=== PATIENT | female | born 1995 | race Caucasian/White ===

== ENCOUNTER 2017-07-27 18:57 | Emergency (ER) | payer SELFPAY ==
[~2017-07-27] VITALS: Ht 170.2 cm; Wt 108.6 kg
[~2017-07-27 18:57] MED LIST: ADDERALL20 MG PO; ALBUTEROL SUL0.083 % IN; AMOXICILLIN500 MG PO; CIPROFLOXACN500 MG PO; NAPROSYN500 MG PO; PENICILLN VK500 MG PO; PRISTIQ50 MG PO
[2017-07-27 19:49] LABS: HEMOGLOBIN 13.3 g/dl (12.0-16.0); IMMATURE GRANULOCYTES 0.3 % (0.0-1.0); MEAN CELL VOLUME 85.9 fL CALC (80.0-100.0); MEAN CORPUSCULAR HGB 29.3 pG CALC (26.0-32.0); MEAN CORPUSCULAR HGB CONC 34.1 g/L CALC (32.0-36.0); NEUT# 6.12 thou/uL (2.00-7.15); RED BLOOD COUNT 4.54 mill/uL (4.20-5.60); RED CELL DISTRI WIDTH 12.4 % (11.5-15.5)
[2017-07-27 19:56] LABS: URINE BILIRUBIN - DIPSTICK NEGATIVE (NEGATIVE); URINE BLOOD DIPSTICK TRACE-INTACT (NEGATIVE); URINE COLOR YELLOW; URINE GLUCOSE - DIPSTICK NEGATIVE (NEGATIVE); URINE KETONE NEGATIVE (NEGATIVE); URINE NITRITE - DIPSTICK NEGATIVE (Negative); URINE PH 5.5 (4.5-8.0); URINE PROTEIN - DIPSTICK NEGATIVE (NEG-TRACE); URINE UROBILINOGEN - DIPSTICK 0.2 E.U./dL (0.2)
[2017-07-27 19:57] LABS: URINE CLARITY CLOUDY; URINE LEUK ESTERASE LARGE (NEGATIVE)
[2017-07-27 20:05] LABS: URINE BACTERIA FEW hpf; URINE SQUAMOUS EPITHELIAL CELL MANY EPI/hpf (0-FEW); URINE WBC TNTC WBC/hpf (0-5)
[2017-07-27 20:15] LABS: ALBUMIN 3.9 g/dL (3.2-5.0); ALKALINE PHOSPHATASE 52 u/l (38-126); AMYLASE 80 u/l (30-110); ANION GAP 15 (6-22 (CALC)); BILIRUBIN, TOTAL 0.4 mg/dL (0.0-1.4); BUN 8 mg/dL (7-17); BUN/CREATININE RATIO 14 (12-20 (CALC)); CARBON DIOXIDE 24 mmol/l (22-30); CHLORIDE 107 mmol/l (95-108); CREATININE 0.6 mg/dL (0.5-1.0); GFR > 60 ML/MIN (>=60 (CALC)); GFR FOR AFR.AMER. > 60 ML/MIN (>=60 (CALC)); GLUCOSE 91 mg/dL (65-105); LIPASE 134 u/l (23-300); POTASSIUM 4.1 mmol/l (3.5-5.1); SGOT/AST 18 u/l (14-36); SGPT/ALT 24 u/l (9-52); SODIUM 142 mmol/l (137-146); TOTAL PROTEIN 7.1 g/dL (6.3-8.2)
[2017-07-27] MEDS ORDERED: CIPROFLOXACN500 MG PO (21:51)
[2017-07-27] MEDS ORDERED: PRILOSEC20 MG PO (21:51)
[2017-07-27 22:14] VITALS: BP 114/71
== END 2017-07-27 22:15 | disposition home or self-care (01) | DRG 690 ==
LOC: ED 18:57
PROVIDERS: Emergency Medicine
DX: N39.0 Urinary tract infection, site not specified (principal); R50.9 Fever, unspecified; R10.11 Right upper quadrant pain; R10.12 Left upper quadrant pain; R11.2 Nausea with vomiting, unspecified; R19.7 Diarrhea, unspecified; N83.202 Unspecified ovarian cyst, left side

== ENCOUNTER 2017-09-25 09:26 | Emergency (ER) | payer SELFPAY ==
[~2017-09-25] VITALS: Ht 170.2 cm; Wt 100.0 kg
[~2017-09-25 09:26] MED LIST changes: +PRILOSEC20 MG PO
[2017-09-25 11:21] LABS: URINE BILIRUBIN - DIPSTICK NEGATIVE (NEGATIVE); URINE BLOOD DIPSTICK LARGE (NEGATIVE); URINE COLOR YELLOW; URINE GLUCOSE - DIPSTICK NEGATIVE (NEGATIVE); URINE KETONE NEGATIVE (NEGATIVE); URINE NITRITE - DIPSTICK NEGATIVE (Negative); URINE PH 7.5 (4.5-8.0); URINE PROTEIN - DIPSTICK NEGATIVE (NEG-TRACE); URINE UROBILINOGEN - DIPSTICK 0.2 E.U./dL (0.2)
[2017-09-25 11:23] LABS: HEMATOCRIT 40.5 % (37.0-47.0); HEMOGLOBIN 13.7 g/dl (12.0-16.0); IMMATURE GRANULOCYTES 0.2 % (0.0-1.0); MEAN CORPUSCULAR HGB 29.1 pG CALC (26.0-32.0); MEAN CORPUSCULAR HGB CONC 33.8 g/L CALC (32.0-36.0); NEUT# 5.62 thou/uL (2.00-7.15); RED BLOOD COUNT 4.71 mill/uL (4.20-5.60); RED CELL DISTRI WIDTH 12.5 % (11.5-15.5)
[2017-09-25 11:26] LABS: URINE CLARITY CLOUDY; URINE LEUK ESTERASE SMALL (NEGATIVE)
[2017-09-25 11:28] LABS: URINE RBC TNTC RBC/hpf (0-5); URINE SQUAMOUS EPITHELIAL CELL FEW EPI/hpf (0-FEW)
[2017-09-25 11:41] LABS: ALBUMIN 3.6 g/dL (3.2-5.0); ALKALINE PHOSPHATASE 56 u/l (38-126); ANION GAP 12 (6-22 (CALC)); BILIRUBIN, TOTAL 0.4 mg/dL (0.0-1.4); BUN 9 mg/dL (7-17); BUN/CREATININE RATIO 14 (12-20 (CALC)); CARBON DIOXIDE 29 mmol/l (22-30); CHLORIDE 104 mmol/l (95-108); CREATININE 0.6 mg/dL (0.5-1.0); GFR > 60 ML/MIN (>=60 (CALC)); GFR FOR AFR.AMER. > 60 ML/MIN (>=60 (CALC)); GLUCOSE 102 mg/dL (65-105); POTASSIUM 4.3 mmol/l (3.5-5.1); SGOT/AST 19 u/l (14-36); SGPT/ALT 25 u/l (9-52); SODIUM 140 mmol/l (137-146); TOTAL PROTEIN 6.9 g/dL (6.3-8.2)
[2017-09-25] MEDS ORDERED: ZOFRAN ODT4 MG PO (12:13)
[2017-09-25 12:35] VITALS: BP 115/57
== END 2017-09-25 12:39 | disposition home or self-care (01) | DRG 392 ==
LOC: ED 09:26
PROVIDERS: Emergency Medicine
DX: K52.9 Noninfective gastroenteritis and colitis, unspecified (principal); F17.200 Nicotine dependence, unspecified, uncomplicated; F32.9 Major depressive disorder, single episode, unspecified; J45.909 Unspecified asthma, uncomplicated; F90.9 Attention-deficit hyperactivity disorder, unspecified type; F41.9 Anxiety disorder, unspecified

== ENCOUNTER 2017-10-19 07:51 | Emergency (ER) | payer SELFPAY ==
[~2017-10-19] VITALS: Ht 170.2 cm; Wt 109.0 kg
[2017-10-19 07:51] VITALS: BP 129/73
[~2017-10-19 07:51] MED LIST changes: +ZOFRAN ODT4 MG PO
[2017-10-19 09:09] LABS: INFLUENZA A POSITIVE (NONE DETECT); INFLUENZA B NONE DETECTED (NONE DETECT)
[2017-10-19] MEDS ORDERED: ROBITUSSIN AC10 ML PO (09:11)
[2017-10-19] MEDS ORDERED: TAM75CAP PO (09:11)
== END 2017-10-19 09:25 | disposition home or self-care (01) | DRG 153 ==
LOC: ED 07:51
PROVIDERS: Emergency Medicine
DX: J11.1 Influenza due to unidentified influenza virus with other respiratory manifestations (principal); F17.210 Nicotine dependence, cigarettes, uncomplicated; R05 Cough; M79.1 Myalgia; R11.10 Vomiting, unspecified

== ENCOUNTER 2017-12-07 12:12 | Emergency (ER) | payer SELFPAY ==
[~2017-12-07] VITALS: Ht 170.2 cm; Wt 105.0 kg
[~2017-12-07 12:12] MED LIST changes: +ROBITUSSIN AC10 ML PO; +TAM75CAP PO
[2017-12-07 12:47] LABS: INFLUENZA A NONE DETECTED (NONE DETECT); INFLUENZA B POSITIVE (NONE DETECT)
[2017-12-07 13:16] LABS: URINE BLOOD DIPSTICK NEGATIVE (NEGATIVE); URINE COLOR YELLOW; URINE GLUCOSE - DIPSTICK 100 mg/dL (NEGATIVE); URINE KETONE TRACE mg/dL (NEGATIVE); URINE LEUK ESTERASE NEGATIVE (Negative); URINE NITRITE - DIPSTICK NEGATIVE (Negative); URINE PH 5.5 (4.5-8.0); URINE PROTEIN - DIPSTICK 100 mg/dL (NEG-TRACE); URINE SPECIFIC GRAVITY >=1.030; URINE UROBILINOGEN - DIPSTICK 0.2 E.U./dL (0.2)
[2017-12-07 13:18] LABS: URINE BILIRUBIN - DIPSTICK NEGATIVE (NEGATIVE); URINE CLARITY CLEAR
[2017-12-07 13:19] LABS: COCAINE NEGATIVE (NEGATIVE); URINE RBC 0-2 RBC/hpf (0-5); URINE SQUAMOUS EPITHELIAL CELL MODERATE EPI/hpf (0-FEW); URINE WBC 0-2 WBC/hpf (0-5)
[2017-12-07 13:20] LABS: BARBITURATES NEGATIVE (NEGATIVE); METHADONE NEGATIVE (NEGATIVE); OXCYCODONE NEGATIVE (NEGATIVE); TETRAHYDROCANNABIONOL POSITIVE (NEGATIVE); TRICYLIC ANTIDEPRESSANTS NEGATIVE (NEGATIVE)
[2017-12-07] MEDS ORDERED: TAM75CAP PO (13:42)
[2017-12-07 13:45] VITALS: BP 128/74
[2017-12-07] MEDS ORDERED: PROVENTIL HFA IN (13:47)
[2017-12-07] MEDS ORDERED: ZITHROMAX250 MG PO (13:47)
== END 2017-12-07 13:45 | disposition home or self-care (01) | DRG 153 ==
LOC: ED 12:12
PROVIDERS: Emergency Medicine
DX: J11.1 Influenza due to unidentified influenza virus with other respiratory manifestations (principal); J45.909 Unspecified asthma, uncomplicated

== ENCOUNTER 2018-03-25 14:53 | Emergency (ER) | payer SELFPAY ==
[~2018-03-25] VITALS: Ht 170.2 cm; Wt 109.0 kg
[~2018-03-25 14:53] MED LIST changes: +PROVENTIL HFA IN; +ZITHROMAX250 MG PO
[2018-03-25 15:46] LABS: HEMATOCRIT 39.8 % (37.0-47.0); HEMOGLOBIN 13.4 g/dl (12.0-16.0); IMMATURE GRANULOCYTES 0.3 % (0.0-1.0); MEAN CORPUSCULAR HGB 28.6 pG CALC (26.0-32.0); MEAN CORPUSCULAR HGB CONC 33.7 g/L CALC (32.0-36.0); NEUT# 3.24 thou/uL (2.00-7.15); RED BLOOD COUNT 4.68 mill/uL (4.20-5.60); RED CELL DISTRI WIDTH 12.7 % (11.5-15.5)
[2018-03-25 15:53] LABS: ANION GAP 19 (6-22 (CALC)); BUN 7 mg/dL (7-17); BUN/CREATININE RATIO 11 (12-20 (CALC)); CARBON DIOXIDE 23 mmol/l (22-30); CHLORIDE 106 mmol/l (95-108); CREATININE 0.6 mg/dL (0.5-1.0); GFR > 60 ML/MIN (>=60 (CALC)); GFR FOR AFR.AMER. > 60 ML/MIN (>=60 (CALC)); POTASSIUM 4.3 mmol/l (3.5-5.1); SODIUM 144 mmol/l (137-146)
[2018-03-25] MEDS ORDERED: RANITIDINE150 M1 PO (16:40)
[2018-03-25 16:52] VITALS: BP 102/55
== END 2018-03-25 16:58 | disposition home or self-care (01) | DRG 313 ==
LOC: ED 14:53
PROVIDERS: Family Medicine
DX: R07.9 Chest pain, unspecified (principal); J45.909 Unspecified asthma, uncomplicated

== ENCOUNTER 2019-08-08 19:41 | Emergency (ER) | payer SELFPAY ==
[~2019-08-08] VITALS: Ht 170.2 cm; Wt 104.5 kg
[~2019-08-08 19:41] MED LIST changes: +RANITIDINE150 M1 PO
[2019-08-08] MEDS ORDERED: ZOFRAN4 M1 PO (21:43)
[2019-08-08 22:00] VITALS: BP 142/83
== END 2019-08-08 22:00 | disposition home or self-care (01) | DRG 203 ==
LOC: ED 19:41
DX: J45.909 Unspecified asthma, uncomplicated (principal); F17.210 Nicotine dependence, cigarettes, uncomplicated

== ENCOUNTER 2022-07-13 12:21 | Emergency (ER) | payer SELFPAY ==
[~2022-07-13] VITALS: Ht 170.2 cm; Wt 68.0 kg
[~2022-07-13 12:21] MED LIST changes: +ZOFRAN4 M1 PO
[2022-07-13 13:43] VITALS: BP 112/46
[2022-07-13 13:45] VITALS: BP 99/63
[2022-07-13 14:00] VITALS: BP 120/53
[2022-07-13 14:53] LABS: HEMATOCRIT 37.9 % (37.0-47.0); HEMOGLOBIN 12.3 g/dl (12.0-16.0); MEAN CELL VOLUME 88.8 fL CALC (80.0-100.0); MEAN CORPUSCULAR HGB 28.8 pG CALC (26.0-32.0); MEAN CORPUSCULAR HGB CONC 32.5 g/dL CAL (32.0-36.0); NEUT# 5.27 thou/uL (2.00-7.15); RED BLOOD COUNT 4.27 mill/uL (4.20-5.60); RED CELL DISTRI WIDTH 13.5 % (11.5-15.5)
[2022-07-13 15:02] LABS: ALKALINE PHOSPHATASE 55 u/l (38-126); ANION GAP 14 (6-22 (CALC)); BILIRUBIN, TOTAL 0.3 mg/dL (0.0-1.4); BUN 11 mg/dL (7-17); BUN/CREATININE RATIO 20 (12-20 (CALC)); CARBON DIOXIDE 24 mmol/l (22-30); CHLORIDE 104 mmol/l (95-108); CREATININE 0.6 mg/dL (0.5-1.0); GFR FOR AFR.AMER. > 60 ML/MIN (>=60 (CALC)); GFR OTHER RACES > 60 ML/MIN (>=60 (CALC)); POTASSIUM 4.3 mmol/l (3.5-5.1); SODIUM 138 mmol/l (137-146); TOTAL PROTEIN 7.4 g/dL (6.3-8.2)
[2022-07-13 15:03] LABS: SGOT/AST 20 u/l (14-36)
[2022-07-13] MEDS ORDERED: BACTRIM DS1 TAB PO (15:51)
[2022-07-13] MEDS ORDERED: KEFLEX500 MG PO (15:51)
[2022-07-13 15:58] VITALS: BP 120/53
[2022-07-13] MEDS ORDERED: ULTRAM50 M1 PO (23:28)
== END 2022-07-13 16:04 | disposition home or self-care (01) | DRG 603 ==
LOC: ED 12:21
PROVIDERS: Emergency Medicine
DX: L03.116 Cellulitis of left lower limb (principal); J45.909 Unspecified asthma, uncomplicated; F17.200 Nicotine dependence, unspecified, uncomplicated

== ENCOUNTER 2023-03-12 15:38 | Emergency (ER) | payer SELFPAY ==
[~2023-03-12] VITALS: Ht 170.2 cm; Wt 89.8 kg
[~2023-03-12 15:38] MED LIST changes: +BACTRIM DS1 TAB PO; +KEFLEX500 MG PO; +ULTRAM50 M1 PO
[2023-03-12] MEDS ORDERED: BACTRIM DS1 TAB PO (16:47)
[2023-03-12 16:51] VITALS: BP 128/79
== END 2023-03-12 17:06 | disposition home or self-care (01) | DRG 603 ==
LOC: ED 15:38
PROC: 0H9EXZZ Drainage of Left Lower Arm Skin, External Approach (ICD-10-PCS; principal; 2023-03-12)
DX: L02.414 Cutaneous abscess of left upper limb (principal); J45.909 Unspecified asthma, uncomplicated; F17.200 Nicotine dependence, unspecified, uncomplicated

== ENCOUNTER 2023-03-14 14:19 | Emergency (ER) | payer SELFPAY ==
[~2023-03-14] VITALS: Ht 170.2 cm; Wt 100.0 kg
[2023-03-14 14:38] VITALS: BP 127/88
[2023-03-14 14:45] VITALS: BP 127/91
[2023-03-14 15:06] VITALS: BP 127/91
== END 2023-03-14 15:09 | disposition home or self-care (01) | DRG 951 ==
LOC: ED 14:19
DX: Z48.01 Encounter for change or removal of surgical wound dressing (principal)

== ENCOUNTER 2023-03-16 13:56 | Emergency (ER) | payer SELFPAY ==
[~2023-03-16] VITALS: Ht 170.2 cm; Wt 86.0 kg
[2023-03-16 14:11] VITALS: BP 116/80
[2023-03-16 15:06] VITALS: BP 116/80
== END 2023-03-16 15:16 | disposition home or self-care (01) | DRG 951 ==
LOC: ED 13:56
DX: Z48.01 Encounter for change or removal of surgical wound dressing (principal); F17.200 Nicotine dependence, unspecified, uncomplicated

== ENCOUNTER 2023-03-20 14:29 | Emergency (ER) | payer SELFPAY ==
[~2023-03-20] VITALS: Ht 170.2 cm; Wt 65.7 kg
[2023-03-20 14:36] VITALS: BP 116/61
[2023-03-20 14:45] VITALS: BP 118/78
[2023-03-20 15:07] VITALS: BP 118/78
== END 2023-03-20 15:13 | disposition home or self-care (01) | DRG 951 ==
LOC: ED 14:29
DX: Z48.01 Encounter for change or removal of surgical wound dressing (principal); J45.909 Unspecified asthma, uncomplicated; F17.200 Nicotine dependence, unspecified, uncomplicated

== ENCOUNTER 2023-11-11 17:19 | Emergency (ER) | payer SELFPAY ==
[~2023-11-11] VITALS: Ht 170.2 cm; Wt 99.0 kg
[2023-11-11 18:22] LABS: BASO% 0.2 % (0-3); EOS% 2.6 % (0-8); IMMATURE GRANULOCYTES 0.2 % (0.0-5.0); LYMPH% 10.9 % (15-41); MEAN CORPUSCULAR HGB 28.1 pG CALC (26.0-32.0); MEAN CORPUSCULAR HGB CONC 33.5 g/dL CAL (32.0-36.0); NEUT# 13.54 thou/uL (2.00-7.15); NEUT% 77.1 % (42-76); RED BLOOD COUNT 5.3 mill/uL (4.20-5.60)
[2023-11-11 18:23] LABS: HEMATOCRIT 44.5 % (37.0-47.0); HEMOGLOBIN 14.9 g/dl (12.0-16.0)
[2023-11-11 18:26] LABS: URINE BLOOD DIPSTICK Negative (NEGATIVE); URINE GLUCOSE - DIPSTICK Negative (NEGATIVE); URINE KETONE 15 mg/dL (NEGATIVE); URINE LEUK ESTERASE Negative (NEGATIVE); URINE NITRITE - DIPSTICK Negative (Negative); URINE PROTEIN - DIPSTICK Trace mg/dL (NEG-TRACE); URINE SPECIFIC GRAVITY 1.025; URINE UROBILINOGEN - DIPSTICK 0.2 E.U./dL (0.2)
[2023-11-11 18:27] LABS: URINE COLOR Yellow
[2023-11-11 18:37] LABS: ALBUMIN 3.9 g/dL (3.2-5.0); ALKALINE PHOSPHATASE 66 u/l (38-126); ANION GAP 15 (6-22 (CALC)); BUN 19 mg/dL (7-17); BUN/CREATININE RATIO 30 (12-20 (CALC)); CARBON DIOXIDE 20 mmol/l (22-30); CHLORIDE 105 mmol/l (95-108); CREATININE 0.6 mg/dL (0.5-1.0); GFR FOR AFR.AMER. > 60 ML/MIN (>=60 (CALC)); GFR OTHER RACES > 60 ML/MIN (>=60 (CALC)); LIPASE 61 u/l (23-300); POTASSIUM 4.8 mmol/l (3.5-5.1); SGOT/AST 22 u/l (14-36); SODIUM 135 mmol/l (137-146); TOTAL PROTEIN 7.1 g/dL (6.3-8.2)
[2023-11-11 18:38] LABS: BILIRUBIN, TOTAL 0.5 mg/dL (0.02-1.3)
[2023-11-11 18:45] VITALS: BP 115/79
[2023-11-11 19:01] VITALS: BP 98/63
[2023-11-11 19:15] VITALS: BP 105/50
[2023-11-11 21:02] VITALS: BP 105/50
== END 2023-11-11 21:08 | disposition left against medical advice (07) | DRG 603 ==
LOC: ED 17:19
PROVIDERS: Family Medicine
DX: L03.311 Cellulitis of abdominal wall (principal); F15.10 Other stimulant abuse, uncomplicated; J45.909 Unspecified asthma, uncomplicated; Z53.29 Procedure and treatment not carried out because of patient's decision for other reasons

== ENCOUNTER 2023-11-14 22:16 | Emergency (ER) | payer SELFPAY ==
[~2023-11-14] VITALS: Ht 170.2 cm; Wt 90.0 kg
[2023-11-14 22:27] VITALS: BP 132/69
[2023-11-14 23:00] VITALS: BP 98/39
[2023-11-15] VITALS (56 sets, daily range): BP systolic 80–166; BP diastolic 52–116
[2023-11-15 01:34] LABS: IMMATURE GRANULOCYTES 0.8 % (0.0-5.0); MEAN CELL VOLUME 80.7 fL CALC (80.0-100.0); MEAN CORPUSCULAR HGB 27.8 pG CALC (26.0-32.0); MEAN CORPUSCULAR HGB CONC 34.5 g/dL CAL (32.0-36.0); RED BLOOD COUNT 6.54 mill/uL (4.20-5.60)
[2023-11-15 01:39] LABS: ALBUMIN 3.2 g/dL (3.2-5.0); TOTAL PROTEIN 6.8 g/dL (6.3-8.2)
[2023-11-15 01:46] LABS: BILIRUBIN, TOTAL 0.8 mg/dL (0.02-1.3); CREATININE 3.2 mg/dL (0.5-1.0)
[2023-11-15 01:58] LABS: HEMATOCRIT 52.8 % (37.0-47.0); HEMOGLOBIN 18.2 g/dl (12.0-16.0); PLATELET COUNT 601 thou/uL (130-400)
[2023-11-15 01:59] LABS: MANUAL DIFFERENTIAL YES
[2023-11-15 02:05] LABS: BAND 1 % (0-8)
--- NOTE | 2023-11-16 15:28 | NUR ---
PRELIMINARY RESULTS OF BLOOD CULTURE SHOWING GRAM POSITIVE COCCI IN 2/4 BOTTLES FROM SAME SET FAXED TO KATHERINE NASREEN @ [phone]. WILL COMMUNICATE FINAL RESULTS ONCE AVAILABLE.
== END 2023-11-15 06:10 | DRG 872 ==
LOC: ED 22:16
PROVIDERS: Family Medicine
PROC: 02HV33Z Insertion of Infusion Device into Superior Vena Cava, Percutaneous Approach (ICD-10-PCS; principal; 2023-11-14)
DX: A41.9 Sepsis, unspecified organism (principal); L03.311 Cellulitis of abdominal wall; N17.9 Acute kidney failure, unspecified; E87.1 Hypo-osmolality and hyponatremia; R65.20 Severe sepsis without septic shock; E87.5 Hyperkalemia; F19.10 Other psychoactive substance abuse, uncomplicated; J45.909 Unspecified asthma, uncomplicated; F17.200 Nicotine dependence, unspecified, uncomplicated

== ENCOUNTER 2023-12-04 12:06 | Inpatient (IN) | payer OTHER ==
[~2023-12-04] VITALS: Ht 170.2 cm; Wt 94.4 kg
[2023-12-04] VITALS (23 sets, daily range): BP systolic 85–125; BP diastolic 36–77
--- NOTE | 2023-12-04 12:06 | NUR ---
PT TO ROOM 8 VIA EMS STRETCHER, PT CRYING WITH ABD PAIN 10/10, PT HAS WOUND UPPER (R) ABD, PICTURES TAKEN OF WOUND, VSS, CHANGED TO GOWN, CALL LIGHT IN REACH, PROVIDER NOTIFIED. PER PT SHE WAS D/C FROM [facility] AFTER 7-10 DAY STAY FOR WOUND & SEPSIS.
--- NOTE | 2023-12-04 12:07 | NUR ---
PT TO ROOM 8 VIA EMS, REPORT RECEIVED, NAD NOTED, PT C/O PAIN 05/29 ABD, CHANGED TO GOWN, CALL LIGHT IN REACH, PROVIDER NOTIFIED.
--- NOTE | 2023-12-04 12:20 | NUR ---
PROVIDER AT BEDSIDE FOR EXAM, RECTAL TEMP 101.8.
[2023-12-04] MEDS ORDERED: PIPERACILLIN Sodium-Tazobactam 3.375 GM in SODIUM CHLORIDE 0.9% 100 ML IV ONE (12:30)
[2023-12-04] MEDS ORDERED: SODIUM CHLORIDE 0.9% 1,000 ML IV ONE ×2 (12:30→17:35)
[2023-12-04] MEDS ORDERED: VANCOMYCIN HCL 1 GM in SODIUM CHLORIDE 0.9% 250 ML IV ONE (12:30)
[2023-12-04] MEDS ORDERED: MORPHINE SULFATE 4 MG/ML VIAL IV ONE ×2 (12:30→13:35)
[2023-12-04] MEDS ORDERED: ONDANSETRON HCl 4 MG/2 ML SDV IV ONE ×2 (12:30→16:15)
--- NOTE | 2023-12-04 12:41 | NUR ---
PROVIDER IN ROOM FOR CENTAL LINE PLACEMENT, YOEL OBTAINED [phone], PT VSS.
--- NOTE | 2023-12-04 13:04 | NUR ---
PROVIDER JUST FINISHED CENTRAL LINE PLACEMENT, X-RAY IN ROOM FOR CXR, PT STABLE, VSS, CALL LIGHT IN REACH.
--- NOTE | 2023-12-04 13:07 | NUR ---
PT STANDING UP AT DOOR, ALERT, NAD NOTED, SITTER AT DOOR.
--- NOTE | 2023-12-04 13:18 | NUR ---
CXR COMPLETED FOR PLACEMENT OF CENTRAL LINE (L) IJ, PLACEMENT NOT CORRECT, PROVIDER IN ROOM FOR PLACEMENT CENTRAL LINE (R) NECK.
--- NOTE | 2023-12-04 13:29 | NUR ---
PROVIDER FINISHED WITH PLACEMENT CENTRAL LINE IN (R) IJ, PORTABLE CXR ORDERED FOR PLACEMENT.
[2023-12-04 13:39] LABS: BASO% 0.7 % (0-3); EOS% 0.7 % (0-8); LYMPH% 15.7 % (15-41); MEAN CORPUSCULAR HGB 27.8 pG CALC (26.0-32.0); MEAN CORPUSCULAR HGB CONC 31.5 g/dL CAL (32.0-36.0); MONO% 9.2 % (2-13); NEUT# 9.57 thou/uL (2.00-7.15); NEUT% 72.7 % (42-76); RED BLOOD COUNT 3.02 mill/uL (4.20-5.60); RED CELL DISTRI WIDTH 13.2 % (11.5-15.5)
[2023-12-04 13:46] LABS: HEMATOCRIT 26.7 % (37.0-47.0); HEMOGLOBIN 8.4 g/dl (12.0-16.0); MEAN CELL VOLUME 88.4 fL CALC (80.0-100.0)
--- NOTE | 2023-12-04 13:49 | NUR ---
IN ROOM TO MEDICATE PT PER EMAR FOR PAIN 07/29, VSS, NAD NOTED, CALL LIGHT IN REACH.
[2023-12-04 14:09] LABS: ALKALINE PHOSPHATASE 63 u/l (38-126); SGOT/AST 40 u/l (14-36)
[2023-12-04 14:10] LABS: ALBUMIN 2.1 g/dL (3.2-5.0); ANION GAP 4 (6-22 (CALC)); BILIRUBIN, TOTAL 0.3 mg/dL (0.02-1.3); BUN 3 mg/dL (7-17); BUN/CREATININE RATIO 10 (12-20 (CALC)); CARBON DIOXIDE 30 mmol/l (22-30); CHLORIDE 104 mmol/l (95-108); CREATININE 0.3 mg/dL (0.5-1.0); GFR FOR AFR.AMER. > 60 ML/MIN (>=60 (CALC)); GFR OTHER RACES > 60 ML/MIN (>=60 (CALC)); POTASSIUM 3.5 mmol/l (3.5-5.1); SODIUM 134 mmol/l (137-146); TOTAL PROTEIN 4.9 g/dL (6.3-8.2)
[2023-12-04 14:17] LABS: LIPASE 129 u/l (23-300)
--- NOTE | 2023-12-04 14:24 | NUR ---
2ND BC DRAWN, I/V ANTIBIOTICS STARTED PER EMAR, NAD NOTED, VSS, CALL LIGHT IN REACH.
[2023-12-04] MEDS ORDERED: NEOMYCIN-BACITRACIN-POLYMYXIN 0.5 GM/PAK PAK TOP ONE (15:10)
--- NOTE | 2023-12-04 15:30 | NUR ---
IN ROOM TO REMOVE CENTRAL LINE FROM [facility], PT TOLERATED WELL.
[2023-12-04] MEDS ORDERED: HYDROmorphone HCL 2 MG/AMP IV ONE (15:50)
--- NOTE | 2023-12-04 16:08 | NUR ---
CALLED TO ROOM, PT C/O BEING NAUSEA, WILL ADVISE PROVIDER FOR TX ORDERS.
--- NOTE | 2023-12-04 16:29 | NUR ---
IN ROOM TO MEDICATE PT FOR C/O PAIN 05/29 WITH NAUSEA, NAD NOTED, VSS, CALL LIGHT IN REACH.
--- NOTE | 2023-12-04 17:37 | NUR ---
IN ROOM TO DO EKG, PT GIVEN ICE CHIPS, NAD NOTED, VSS, CALL LIGHT IN REACH.
--- NOTE | 2023-12-04 17:59 | NUR ---
IN ROOM TO START I/V FLUIDS PER EMAR, PT VSS, NAD NOTED, CALL LIGHT IN REACH.
[2023-12-04] MEDS ORDERED: HYDROmorphone HCL 2 MG/AMP IV PRN (18:30)
[2023-12-04] MEDS ORDERED: ONDANSETRON HCl 4 MG/2 ML SDV IV PRN (18:30)
[2023-12-04] MEDS ORDERED: SODIUM CHLORIDE 0.9% 1,000 ML IV PRN (18:35)
[2023-12-04] MEDS ORDERED: ACETAMINOPHEN 325 MG/TAB PO PRN (18:35)
[2023-12-04] MEDS ORDERED: MAGNESIUM HYDROXIDE 30 ML UDC PO PRN (18:35)
--- NOTE | 2023-12-04 19:00 | NUR ---
REPORT RECEIVED FROM RONALD SANTACRUZ AND CARE RESUMED BY THIS NURSE AT THIS TIME. PT AWAITING ADMISSION TO MED SURG. CALL LIGHT WITHIN REACH.
--- NOTE | 2023-12-04 19:11 | NUR ---
REPORT GIVEN TO SPRINKLER HELPER, PT SITTING UP IN BED, NAD NOTED, VSS.
[2023-12-04] MEDS ORDERED: HYDROcodone 5 MG/Acetaminophen 325 MG/COMBO PO ONE (19:20)
--- NOTE | 2023-12-04 20:28 | NUR ---
REPORT GIVEN TO DEDRA ROLLINS AT THIS TIME. PT AWAITING TRANSPORT TO MED SURG RM [phone]. CALL LIGHT WITHIN REACH.
[2023-12-04] MEDS ORDERED: ENOXAPARIN SODIUM 40 MG/0.4 ML SYR SC SCH (21:00)
[2023-12-04] MEDS ORDERED: NEOMYCIN-BACITRACIN-POLYMYXIN 0.5 GM/PAK PAK TOP SCH (21:00)
--- NOTE | 2023-12-04 21:00 | NUR ---
RECEIVED REPORT FROM ED NURSE. PT WAS BROUGHT UP VIA WHEELCHAIR. PT WAS ORIENTATED TO ROOM AND TO CALL LIGHT SYSTEM. PT COMPLAINS OF PAIN AT THIS TIME. PT MADE AWARE OF PLAN OF CARE. SAFETY PRECAUTIONS IN PLACE AND CALL LIGHT WITHIN REACH.
--- NOTE | 2023-12-04 21:12 | NUR ---
Admission Note Report Given to: DEDRA ROLLINS Transported by: X Wheelchair Stretcher Transported with: X Nurse Transporter X Patent IV O2 X Tobacco Conditioner Location: ICU X MS2
[2023-12-04 21:48] LABS: URINE BILIRUBIN - DIPSTICK Negative (NEGATIVE); URINE BLOOD DIPSTICK Negative (NEGATIVE); URINE GLUCOSE - DIPSTICK Negative (NEGATIVE); URINE KETONE Negative (NEGATIVE); URINE NITRITE - DIPSTICK Negative (Negative); URINE PH 6.5 (4.5-8.0); URINE PROTEIN - DIPSTICK Trace mg/dL (NEG-TRACE); URINE UROBILINOGEN - DIPSTICK 0.2 E.U./dL (0.2)
[2023-12-04 21:49] LABS: URINE COLOR Yellow; URINE LEUK ESTERASE Small (NEGATIVE)
[2023-12-04 21:55] LABS: URINE BACTERIA FEW hpf; URINE SQUAMOUS EPITHELIAL CELL FEW EPI/hpf (0-FEW)
[2023-12-05] VITALS (16 sets, daily range): BP systolic 93–151; BP diastolic 26–83
--- NOTE | 2023-12-05 | NUR ---
PT IS IN BED SLEEPING COMFORTABLY AT THIS TIME. PT SHOWS NO SIGNS OF PAIN OR DISCOMFORT AT THIS TIME. SAFETY PRECAUTIONS IN PLACE AND CALL LIGHT WITHIN REACH.
--- NOTE | 2023-12-05 04:10 | NUR ---
PT IS IN BED SLEEPING COMFORTABLY AT THIS TIME., PT DENIES OF PAIN AT THE CURRENT MOMENT. SAFETY PRECAUTIONS IN PLACE AND CALL LIGHT WITHIN REACH.
[2023-12-05 04:58] LABS: BASO% 0.6 % (0-3); EOS% 1.3 % (0-8); HEMATOCRIT 26.2 % (37.0-47.0); IMMATURE GRANULOCYTES 0.7 % (0.0-5.0); LYMPH% 16.2 % (15-41); MEAN CELL VOLUME 90.3 fL CALC (80.0-100.0); MEAN CORPUSCULAR HGB 27.6 pG CALC (26.0-32.0); MEAN CORPUSCULAR HGB CONC 30.5 g/dL CAL (32.0-36.0); MONO% 9.5 % (2-13); NEUT# 9.91 thou/uL (2.00-7.15); NEUT% 71.7 % (42-76); RED BLOOD COUNT 2.9 mill/uL (4.20-5.60); RED CELL DISTRI WIDTH 13.5 % (11.5-15.5)
[2023-12-05 05:10] LABS: ANION GAP 5 (6-22 (CALC)); BUN 3 mg/dL (7-17); BUN/CREATININE RATIO 10 (12-20 (CALC)); CARBON DIOXIDE 29 mmol/l (22-30); CHLORIDE 105 mmol/l (95-108); CREATININE 0.4 mg/dL (0.5-1.0); GFR FOR AFR.AMER. > 60 ML/MIN (>=60 (CALC)); GFR OTHER RACES > 60 ML/MIN (>=60 (CALC)); MAGNESIUM 1.6 mg/dL (1.6-2.3); POTASSIUM 3.7 mmol/l (3.5-5.1); SODIUM 136 mmol/l (137-146)
--- NOTE | 2023-12-05 09:03 | NUR ---
PATIENT TAKEN DOWN FOR ULTRASOUND.
[2023-12-05] MEDS ORDERED: LIDOCAINE HCL 2% 2ML SDV IV ONE (09:04)
[2023-12-05] MEDS ORDERED: LACTATED RINGER'S 1,000 ML BAG IV ONE (09:04)
[2023-12-05] MEDS ORDERED: KETAMINE HCL 50 MG/ML 10 ML VIAL IV ONE (09:04)
[2023-12-05] MEDS ORDERED: MIDAZOLAM HCL 2 MG/2 ML VIAL IV ONE (09:04)
[2023-12-05] MEDS ORDERED: PROPOFOL 200 MG/20 ML VIAL IV ONE (09:04)
[2023-12-05] MEDS ORDERED: VANCOMYCIN HCL 1 GM in SODIUM CHLORIDE 0.9% 250 ML IV SCH (09:30)
--- NOTE | 2023-12-05 09:50 | NUR ---
PATIENT RETURNED TO UNIT FROM ULTRASOUND.
--- NOTE | 2023-12-05 10:51 | NUR ---
STAFF AT BEDSIDE TO TAKE PATIENT DOWN FOR SX.
[2023-12-05] MEDS ORDERED: LIDOcaine HCl 1% (Local Anesth.) 20 ML VIAL ONE (11:14)
[2023-12-05] MEDS ORDERED: STERILE WATER FOR IRRIGATION 1,000 ML BTL IR ONE (11:15)
[2023-12-05] MEDS ORDERED: SODIUM CHLORIDE 1,000 ML BTL IR ONE (11:15)
[2023-12-05] MEDS ORDERED: FAMOTIDINE 10MG/ML 2ML SDV IV ONE (11:20)
--- NOTE | 2023-12-05 11:50 | NUR ---
S: KENDALL GRAFF is a 28 F who presents with right upper abdominal pain. She has a history of asthma and IV drug abuse. All medications in patient's chart were reviewed. O: VS: BP 112/63 mmHg, P 104 bpm, RR 30 bpm ,T 101.8 F W 99.7 kg, HT 67 in, Scr= 0.4 mg/dL, CrCl= 203.6 ml/min A: Blood culture is pending. Urine culture is pending. P: Patient is on piperacillin 3.375 g IV Q6H and neomycin/polymyxin/bacitracin topically BID. Vancomycin ordered for pharmacy to dose. Start Vancomycin 1 g IV Q8H. Vancomycin trough is drawn before the 4th dose on 12/06/23 at 0900. Vancomycin goal trough is between 10-15 mcg/ml. Pharmacy will follow and or advise on antibiotics use as needed.
[2023-12-05] MEDS ORDERED: PIPERACILLIN Sodium-Tazobactam 3.375 GM in SODIUM CHLORIDE 0.9% 100 ML IV SCH ×2 (12:00)
[2023-12-05] MEDS ORDERED: HYDROmorphone HCL 2 MG/AMP IV PRN (12:35)
[2023-12-05] MEDS ORDERED: ONDANSETRON HCl 4 MG/2 ML SDV IV PRN (12:35)
[2023-12-05] MEDS ORDERED: oxyCODONE 5MG/ ACETAMINOPHEN 325MG TAB PO PRN (12:35)
[2023-12-05] MEDS ORDERED: KETOROLAC TROMETHAMINE 30 MG/ML SDV ONE (12:43)
[2023-12-05] MEDS ORDERED: ACETAMINOPHEN 100 ML IV ONE (12:43)
--- NOTE | 2023-12-05 13:14 | NUR ---
PATIENT RETURNED FROM OR AT 1307.
[2023-12-05] MEDS ORDERED: FUROSEMIDE 40 MG/4 ML SDV IV SCH (14:00)
--- NOTE | 2023-12-05 15:55 | NUR ---
PATIENT UP TO BSC. MOTHER AT BEDSIDE. PATIENT C/O ABD PAIN OF A 3, MEDICATED ACCORDING TO EMAR. NO OTHER ISSUES OR CONCERNS AT THIS TIME. SAFETY MEASURES IN PLACE. WILL CONTINUE WITH PLAN OF CARE.
--- NOTE | 2023-12-05 19:20 | NUR ---
PT ASSISTED FROM BSC TO BED STAND BY ASSSIST. PT IS A&OX3 ABLE TO MAKE NEEDS KNOW. PT IS ON TELE. RIJ TRIPLE LUMEN INFUSING NS @100CC/HR. WOUND VAC TO RUQ AT 125MM. BRUISES NOTED TO BILATERAL ARMS. CALL LIGHT IN REACH AND BED IN LOWSET POSITION.
--- NOTE | 2023-12-05 21:14 | NUR ---
PT IN BED WATCHING TV SIGNIFICANT OTHER AT BEDSIDE. SHIFT ASSESSMENT COMPLETED. PT REPORT PAIN TO RUQ, PT MEDICATED ORDER PER DEC. BLE EDEMA NOTED. PT REFUSED SCD, PT EDUCATED ON THE PORPOSE OF SCD, PT AGGRE TO WEAR TEDS. WHILE IN THE ROOM NOTED PT SIGNIFICANT OTHER HAND A BLACK BOX TO PT, WHILE SIGNIFICANT OTHER WAS PULLING WHAT IT LOOK LIKE A RING. I ASK THEM IF THAT WAS JEWERLY THEY REPLY "MMM YES" I EXPLAIN TO THEM IT WOULF BE BETTER FOR HER SIGHNIFICANT OTHER TO TAKE IT WIHT HIM DUE FOR SAFETY PURPOSES OR IF SHE WOULD LIKE TO SEND IT TO HOSPITAL DAFE. PT STATED OH HE CAN TAKE IT. SIGNIFICANT OTHER TOOK THE BLACK BOX WITH HIM. NO NEEDS OR CONCERN VOICED. CALL LIGHT IN REACH AND BED IN LOWEST POSITION.
[2023-12-06] VITALS (7 sets, daily range): BP systolic 109–143; BP diastolic 54–71
--- NOTE | 2023-12-06 00:26 | NUR ---
PT IN BED RESTING WITH EYES CLOSED BREATHING IS EVEN AND UNLABORED. CALL LIGHT IN REACH AND BED IN LOWSET POSITION.
--- NOTE | 2023-12-06 04:35 | NUR ---
PT IN BED RESTING WITH EYES CLOSED BREATHING IS EVEN ADN UNLABOED, NO S/S OF DISTRESS NOTED CALL LIGHT IN REACH AND BED IN LOWEST POSITION.
[2023-12-06 05:37] LABS: BASO% 0.4 % (0-3); EOS% 1.6 % (0-8); HEMATOCRIT 23.7 % (37.0-47.0); HEMOGLOBIN 7.4 g/dl (12.0-16.0); IMMATURE GRANULOCYTES 0.7 % (0.0-5.0); LYMPH% 17.4 % (15-41); MEAN CELL VOLUME 89.8 fL CALC (80.0-100.0); MEAN CORPUSCULAR HGB CONC 31.2 g/dL CAL (32.0-36.0); MONO% 8.2 % (2-13); NEUT# 8.22 thou/uL (2.00-7.15); NEUT% 71.7 % (42-76); RED BLOOD COUNT 2.64 mill/uL (4.20-5.60); RED CELL DISTRI WIDTH 13.6 % (11.5-15.5)
[2023-12-06 05:46] LABS: ANION GAP 4 (6-22 (CALC)); BUN 3 mg/dL (7-17); BUN/CREATININE RATIO 8 (12-20 (CALC)); CARBON DIOXIDE 28 mmol/l (22-30); CHLORIDE 106 mmol/l (95-108); CREATININE 0.4 mg/dL (0.5-1.0); GFR FOR AFR.AMER. > 60 ML/MIN (>=60 (CALC)); GFR OTHER RACES > 60 ML/MIN (>=60 (CALC)); MAGNESIUM 1.5 mg/dL (1.6-2.3); POTASSIUM 3.4 mmol/l (3.5-5.1); SODIUM 135 mmol/l (137-146)
--- NOTE | 2023-12-06 07:20 | NUR ---
REPORT RECEIVED FROM NEETA ARMSTRONG
--- NOTE | 2023-12-06 09:40 | NUR ---
PT RESTING IN SEMI FOWLERS POSITION,A&O X3;POD #1 I&D OF ABDOMINAL WOUND WITH WOUND VAC PLACEMENT;ASSESSMENT COMPLETED;RESPIRATIONS EVEN AND UNLABORED ON RA;PT REPORTS RUQ PAIN AND REQUESTS PRN PAIN MEDICATION, PT TO BE MEDICATED WITH PERCOCET 5/325MG PO;RIJ TL INFUSING NS WITH EASE;PT DENIES ANY ADDITIONAL NEEDS AND IS ENCOURAGED TO CALL FOR ASSISTANCE IF NEEDED;FALL PRECAUTIONS IN PLACE WITH BED IN THE LOWEST POSITION AND CALL LIGHT IN REACH;FREQUENT ROUNDS MADE.
--- NOTE | 2023-12-06 10:34 | NUR ---
S: KENDALL GRAFF is a 28 F who presents with cellulitis O: VS: BP 125/71 mmHg, P 100 bpm, RR 18 bpm,T 98.5 F W 99 kg, HT 67 in, Scr=0.4 mg.dl,CrCl= 169 ml/min Trough- 10 ug/ml A: Blood culture is pending Urine culture is pending P: Patient is on Zosyn 3.375g IV Q6H and vancomycin 1g IV Q8H. Vancomycin ordered for pharmacy to dose. As trough is within range continue Vancomycin 1 IV Q8H. Vancomycin trough is drawn before the 4th dose on 12/07/23 @0900. Vancomycin goal trough is between 10-15 mcg/ml. Pharmacy will follow and or advise on antibiotics use as needed.
[2023-12-06] MEDS ORDERED: MAGNESIUM SULFATE HEPTAHYDRATE 50 ML IV SCH (12:00)
[2023-12-06] MEDS ORDERED: POTASSIUM CHLORIDE 20 MEQ/PKT POWDER PO SCH (12:00)
--- NOTE | 2023-12-06 12:29 | NUR ---
AT BEDSIDE DISCUSSING POC WITH PT
[2023-12-06] MEDS ORDERED: DiphenhydrAMINE HCL 50 MG/ML SDV IV PRN (12:35)
[2023-12-06] MEDS ORDERED: IPRATROPIUM-Albuterol 0.5MG-2.5MG/3 ML NEB PRN (12:40)
--- NOTE | 2023-12-06 13:25 | NUR ---
PT RESTING IN SEMI FOWLERS POSITION;RESPIRATIONS EVEN AND UNLABORED ON RA;PT REPORTS ITCHING TO RUQ AND IS MEDICATED WITH PRN BENADRYL PER REQUEST;TELE MONITORING IN PLACE;IV SITE PATENT;WOUND VAC RUNNING WITH WITH EASE;FRESH WATER PROVIDED PER REQUEST;PT DENIES ANY ADDITIONAL NEEDS AND IS ENCOURAGED TO CALL FOR ASSISTANCE IF NEEDED;FALL PRECAUTIONS IN PLACE WITH CALL LIGHT IN REACH;FREQUENT ROUNDS MADE.
--- NOTE | 2023-12-06 15:45 | NUR ---
PT APPEARS TO BE SLEEPING IN SEMI FOWLERS POSITION WITH MOTHER AT BEDSIDE;RESPIRATIONS APPEAR EVEN AND UNLABORED ON RA;NO S/S OF DISTRESS NOTED;TELE MONITORING IN PLACE;RIJ TL INFUSING NS WITH EASE;WOUND VAC APPEARS PATENT;ALL SAFETY PRECAUTIONS IN PLACE WITH BED IN THE LOWEST POSITION AND CALL LIGHT IN REACH;FREQUENT ROUNDS MADE.
[2023-12-06 16:03] LABS: HEMATOCRIT 24.2 % (37.0-47.0); HEMOGLOBIN 7.4 g/dl (12.0-16.0)
--- NOTE | 2023-12-06 20:00 | NUR ---
PATIENT RESTING IN BED AT THIS TIME WATCHING TV. ALERT AND ORIENTEDX3. PATIENT WITH C/O RIGHT UPPER ABD PAIN JUST UNDER HER RIGHT BREAST-MEDICATED WITH DILAUDID 1MG IVP FOR 8/10 PAIN SCALE. WOUND VAC TO RUQ ABD WOUND DRAINING SEROSANGUINOUS FLUID. DRESSING REMAINS INTACT. RIGHT NECK IJ INTACT WITH NS PATENT AND INFUSING AT 100CC/HR. SITE IS HEALTHY. LUNGS ARE CLEAR AT THIS TIME. ABD IS SOFT WITH ACTIVE BS. NO PERIPHERAL EDEMA NOTED. SAFETY PRECAUTIONS REINFORCED. CALL LIGHT IN REACH. WILL CONT TO MONITOR.
--- NOTE | 2023-12-06 21:00 | NUR ---
PATIENT UP TO THE BSC TO VOID 500CC OF YELLOW URINE AND THEN BACK TO BED. MEDICATED WITH BENEDRYL FOR ITCHING TO BOTH ARMS AND BACK. IVF PATENT AND INFUSING VIA RIGHT NECK IJ TLC AT 100CC/HR. WOUND VAC IN PLACE. TELE MONITOR IN PLACE WITH LAST READING SR-90'S. CALL LIGHT IN REACH. WILL CONT TO MONITOR.
[2023-12-07] VITALS (7 sets, daily range): BP systolic 106–138; BP diastolic 46–70
--- NOTE | 2023-12-07 00:11 | NUR ---
PATIENT RESTING IN BED AT THIS TIME-ZOSYN HUNG SCHEDULED AND INFUSING VIA RIGHT NECK TLC. TELE MONTIOR IN PLACE. CALL LIGHT IN REACH. WILL CONT TO MONITOR.
--- NOTE | 2023-12-07 02:08 | NUR ---
PATIENT RESTING IN BED-EYES CLOSED AND RESPS ARE EVEN AND UNLABORED. VANCO INFUSING VIA RIGHT IJ ORDERED. PATIENT HAS BEEN UP TO THE BSC-SMALL AMT OF LOOSE BM AND URINE EMPTIED. WOUND VAC TO RIGHT UPPER ABD REMAINS IN PLACE. TELE MONITOR IN PLACE. CALL LIGHT IN REACH. WILL CONT TO MONITOR.
--- NOTE | 2023-12-07 04:26 | NUR ---
Patient refused to get weight done due to not wonting to be in pain.
--- NOTE | 2023-12-07 04:49 | NUR ---
PATIENT RESTING IN BED-LAB WORK DRAWN FROM BROWN PORT OF RIGHT NECK TLC WITH GOOD BLOOD RETURN. FLUSHED PER PROTOCOL WITH SALINE.ALL PORTS WORKING WELL WITH GOOD BLOOD RETURNS AND FLUSHED PROTOCOL. MEDICATED FOR RIGHT UPPER ABD WITH DILAUDID 1MG IVP FOR 9/10 PAIN SCALE. WOUND VAC INTACT AND DRAINING SERSANGUINOUS FLUID. TELE MONITOR IN PLACE. CALL LIGHT IN REACH. WILL CONT TO MONITOR.
[2023-12-07 04:51] LABS: BASO% 0.5 % (0-3); EOS% 2.4 % (0-8); HEMATOCRIT 24.5 % (37.0-47.0); HEMOGLOBIN 7.4 g/dl (12.0-16.0); IMMATURE GRANULOCYTES 1.4 % (0.0-5.0); LYMPH% 22.1 % (15-41); MEAN CELL VOLUME 89.7 fL CALC (80.0-100.0); MEAN CORPUSCULAR HGB 27.1 pG CALC (26.0-32.0); MEAN CORPUSCULAR HGB CONC 30.2 g/dL CAL (32.0-36.0); MONO% 7.5 % (2-13); NEUT# 5.81 thou/uL (2.00-7.15); NEUT% 66.1 % (42-76); RED BLOOD COUNT 2.73 mill/uL (4.20-5.60); RED CELL DISTRI WIDTH 13.5 % (11.5-15.5)
[2023-12-07 05:18] LABS: ANION GAP 3 (6-22 (CALC)); CARBON DIOXIDE 31 mmol/l (22-30); CHLORIDE 105 mmol/l (95-108); CREATININE 0.3 mg/dL (0.5-1.0); GFR FOR AFR.AMER. > 60 ML/MIN (>=60 (CALC)); GFR OTHER RACES > 60 ML/MIN (>=60 (CALC)); POTASSIUM 3.3 mmol/l (3.5-5.1); SODIUM 136 mmol/l (137-146)
[2023-12-07 05:21] LABS: BUN < 2 mg/dL (7-17)
[2023-12-07 05:22] LABS: BUN/CREATININE RATIO < 7 (12-20 (CALC))
--- NOTE | 2023-12-07 06:55 | NUR ---
REPORT RECEIVED FROM NEETA FISHER
--- NOTE | 2023-12-07 08:25 | NUR ---
PT RESTING IN SEMI FOWLERS POSITION,A&O X3;POD #2 I&D RUQ WITH WOUND VAC PLACEMENT;PT ASSISTED INTO RECLINER;PT A&O X3;PT REPORTS PAIN AND IS MEDICATED WITH PRN PERCOCET PER ORDER;ASSESSMENT COMPLETED;RESPIRATIONS EVEN AND UNLABORED ON RA;WOUND VAC NOTED TO RUQ RUNNING AT 125MMHG, SEROSANGUINEOUS DRAINAGE NOTED;STRONG PEDAL PULSES;RIJ TL INFUSING NS @ 100ML/HR PER ORDER;TELE MONITORING IN PLACE;PT DENIES ANY ADDITIONAL NEEDS AND IS ENCOURAGED TO CALL FOR ASSISTANCE IF NEEDED;FALL PRECAUTIONS IN PLACE WITH CALL LIGHT IN REACH;FREQUENT ROUNDS MADE.
--- NOTE | 2023-12-07 09:44 | NUR ---
AT BEDSIDE DISCUSSING POC WITH PT.
--- NOTE | 2023-12-07 10:17 | NUR ---
PT MEDICATED WITH PRN DILAUDID 1MG SLOW IVP PER REQUEST FOR ABDOMINAL PAIN, FREQUENT ROUNDS MADE.
[2023-12-07] MEDS ORDERED: VANCOMYCIN HCL 1,250 MG in SODIUM CHLORIDE 0.9% 225 ML IV SCH (11:30)
--- NOTE | 2023-12-07 11:40 | NUR ---
PT REMAINS OOB RESTING IN RECLINER WATCHING TV;RESPIRATIONS EVEN AND UNLABORED ON RA;PT REPORTS ITHCING TO WOUND VAC DRESSING AND IS MEDICATED WITH PRN BENYDRAL 25MG IVP PER REQUEST;PT REPORTS PAIN HAS IMPROVED SINCE PRN DILAUDID ADMINISTRATION;IV SITE PATENT AND ABX STARTED PER ORDER;TELE MONITORING IN PLACE;WOUND VAC PATENT;PT ENCOURAGED TO CALL FOR ASSISTANCE IF NEEDED;FALL PRECAUTIONS REMAIN IN PLACE WITH CALL LIGHT IN REACH;FREQUENT ROUNDS MADE.
--- NOTE | 2023-12-07 12:11 | NUR ---
S: KENDALL GRAFF is a 28 F who presents with abdominal cellulitis. O: VS: BP 111/63 mmHg, P 91 bpm , RR 20 bpm,T 96.6 F W 99kg, HT 67 IN, Scr= 0.3,CrCl= 168 ml/min Trough 9 ug/Ml A: Cultures of blood are pending P: Patient is on Zosyn 3.375g IV Q6H. Vancomycin 1g IV Q8H Vancomycin ordered for pharmacy to dose. Stop Vancomycin 1g Q8H IV Start Vancomycin 1250MG IV Q8H. Vancomycin trough is drawn before the 4th dose ON 12/08/23 @1100. Vancomycin goal trough is between 10-15 mcg/ml. Pharmacy will follow and or advise on antibiotics use as needed.
--- NOTE | 2023-12-07 14:09 | NUR ---
PT MEDICATED WITH DILAUDID 1MG SLOW IVP FOR RUQ PER REQUEST;FREQUENT ROUNDS MADE.
--- NOTE | 2023-12-07 16:20 | NUR ---
PT APPEARS TO BE SLEEPING IN SEMI FOWLERS POSITION WITH MOTHER AT BEDSIDE;RESPIRATIONS APPEAR EVEN AND UNLABORED ON RA;NO S/S OF DISTRESS NOTED;TELE MONITORING IN PLACE;RIJ INFUSING NS @ 100ML/HR;WOUND VAC PATENT;ALL SAFETY PRECAUTIONS NOTED WITH BED IN THE LOWEST POSITION AND CALL LIGHT IN REACH;FREQUENT ROUNDS MADE.
--- NOTE | 2023-12-07 20:00 | NUR ---
PATIENT SITTING U P IN BED-AWAKE ALERT AND ORIENTEDX3. PATIENT WITH C/O RIGHT UPPER ABD PAIN AND ITCHING. MEDICATED WITH DILAUDID 1MG IVPO FOR 8/10 PAIN SCALE AND WITH BENEDRYL 25MG FOR ITCHING. PATIENT WITH RIGHT IJ TLC WITH IIVF NS PATENT AND INFUSING AT 100CC/HR. VANCO HUNG ORDERED, TELE MONITOR IN PLACE AND LAST READING OF ST-101. PATIENT HAS BEEN UP TO THE BSC TO VOID 700CC OF CLEAR YELLOW URINE. WOUND VAC TO RIGHT UPPER ABD WOUND INTACT AND DRAINING SEROSANGUINOUS FLUID. LUNGS ARE CLEAR. ABD IS SOFT WITH ACTIVE BS. LAST BM WAS TODAY. NO PERIPHERAL EDEMA NOTED. PULSES ARE PALPABLE. CALL LIGHT IN REACH. WILL CONT TO MONITOR.
--- NOTE | 2023-12-07 21:06 | NUR ---
PATIENT SITTING UP IN BED-AWAKE ALERT AND ORIENTEDX3. PATIENT WITH C/O RIGHT UPPER ABD PAIN AND ITCHING. MEDICATED WITH DILAUDID 1MG IVP FOR 8/10 PAIN SCALE AND WITH BENEDRYL FOR ITCHING. PATIENT WITH RIGHT IJ TLC WITH IVF NS PATENT AND INFUSING AT 100CC/HR. VANCO HUNG ORDERED. TELE MONITOR IN PLACE WITH LAST READING ST-101. PATIENT HAS BEEN UP TO THE BSC TO VOID 700CC OF CLEAR YELLOW URINE. WOUND VAC TO RIGHT UPPER ABD WOUND INTACT AND CONT TO DRAIN SEROSANGUINOUS FLUID. LUNGS ARE CLEAR AND ABD IS SOFT WITH ACTIVE BS. LAST BM WAS TODAY. NO PERIPHERAL EDEMA NOTED. PULSES ARE PALPABLE. CALL LIGHT IN REACH. WILL CONT TO MONITOR.
--- NOTE | 2023-12-07 22:57 | NUR ---
PATIENT RESTING IN BED AT THIS TIME. EYES CLOSED AND RESPS ARE EVEN AND UNLABORED. WOUND VAC INTACT. IVF NS PATENT AND INFUSING VIA RIGHT IJ TLC ORDERED AT 100CC/HR. TELE MONITOR IN PLACE. CALL LIGHT IN REACH. WILL CONT TO MONITOR.
[2023-12-08 00:34] VITALS: BP 131/79
--- NOTE | 2023-12-08 00:43 | NUR ---
PATIENT RESTING IN BED-C/O PAIN RIGHT UPER ABD WOUND. MEDICATED WITH DILAUDID 1MG IVP FOR 8/10 PAIN SCALE. WOUND VAC IN PLACE AT 125MMHG CONT SUCTION DRAINING SEROSANGUINOUS FLUID. IVF PATENT AND INFUSING VIA RIGHT IJ TLC AT 100CC/HR. CALL LIGHT IN REACH. WILL CONT TO MONITOR.
--- NOTE | 2023-12-08 04:05 | NUR ---
PATIENT RESTING IN BED WITH EYES CLOSED. LAB WORK DRAWN FROM BROWN PORT OF RIGHT IJ TLC WITH GOOD BLOOD RETURN. FLUSHED PER PROTOCOL. VANCO INFUSING ORDERED. TELE MONITOR IN PLACE. CALL LIGHT IN REACH. WILL CONT TO MONITOR.
[2023-12-08 04:52] VITALS: BP 133/73
[2023-12-08 04:54] LABS: BASO% 0.8 % (0-3); EOS% 3.8 % (0-8); HEMATOCRIT 23.9 % (37.0-47.0); HEMOGLOBIN 7.3 g/dl (12.0-16.0); IMMATURE GRANULOCYTES 0.8 % (0.0-5.0); MEAN CELL VOLUME 90.9 fL CALC (80.0-100.0); MEAN CORPUSCULAR HGB 27.8 pG CALC (26.0-32.0); MEAN CORPUSCULAR HGB CONC 30.5 g/dL CAL (32.0-36.0); MONO% 8.2 % (2-13); NEUT# 4.72 thou/uL (2.00-7.15); NEUT% 59.4 % (42-76); RED BLOOD COUNT 2.63 mill/uL (4.20-5.60); RED CELL DISTRI WIDTH 13.4 % (11.5-15.5)
[2023-12-08 05:06] LABS: ANION GAP 4 (6-22 (CALC)); CARBON DIOXIDE 32 mmol/l (22-30); CHLORIDE 105 mmol/l (95-108); CREATININE 0.3 mg/dL (0.5-1.0); GFR FOR AFR.AMER. > 60 ML/MIN (>=60 (CALC)); GFR OTHER RACES > 60 ML/MIN (>=60 (CALC)); POTASSIUM 3.5 mmol/l (3.5-5.1); SODIUM 138 mmol/l (137-146)
[2023-12-08 05:08] LABS: BUN < 2 mg/dL (7-17); BUN/CREATININE RATIO < 7 (12-20 (CALC))
--- NOTE | 2023-12-08 07:00 | NUR ---
RECEIVED BEDSIDE REPORT FROM NEETA FISHER. PT RESTING IN BED WITH EYES CLOSED. IV FLUIDS INFUSING. WOUND VAC IN PLACE AND FUNCTIONING. PT HAS RIJ TLC WITH NS INFUSING. NO NEEDS AT THIS TIME. ALL SAFETY MEASURES IN PLACE AND FUNCTIONING PROPERLY.
[2023-12-08] MEDS ORDERED: IRON SUCROSE COMPLEX 200 MG in SODIUM CHLORIDE 0.9% 100 ML IV SCH (09:00)
[2023-12-08] MEDS ORDERED: MAGNESIUM SULFATE HEPTAHYDRATE 50 ML IV SCH (09:30)
--- NOTE | 2023-12-08 13:07 | NUR ---
S: KENDALL GRAFF is a 28 F who presents with abdominal cellulitis. She has a history of asthma and IV drug abuse. All medications in patient's chart were reviewed. O: VS: BP 133/73 mmHg, P 108 bpm, RR 18 bpm, T 98.6F W 108 kg, HT 67 in, Scr= 0.3 mg/dL, CrCl= 271.5 ml/min Vancomycin trough 12/08/23: 10 mcg/mL Currently at goal of 10-15 mcg/mL A: Wound culture show no growth after 48 hours of incubation. Body fluid culture show no growth after 48 hours incubation. P: Patient is on Zosyn 3.375g iv q6h. Vancomycin ordered for pharmacy to dose. Continue Vancomycin 1,250 mg IV Q8H. Vancomycin trough is drawn before the dose on 12/08/23 / 1100. Vancomycin goal trough is between 10-15 mcg/ml. Pharmacy will follow and or advise on antibiotics use as needed.
--- NOTE | 2023-12-08 17:39 | NUR ---
EVEING MEDICAITON ADMINSITERED PER EMAR, PT LAYING SUPINE IN BED WATCHING TV AT THIS TIME. NO S/S OF DISTRESS. DINNER TRAY SERVED. CALL LIGHT WITHIN REACH AND SAFETY PRECAUTIONS IN PLACE.
[2023-12-08 19:20] VITALS: BP 134/74
--- NOTE | 2023-12-08 20:00 | NUR ---
PATIENT RESTING IN BED-AWAKE ALERT AND ORIENTEDX3. PATIENT WITH C/O RIGHT UPPER ABD PAIN-9/10 ON PAIN SCALE. MEDICATED WITH DILAUDID 1MG IVP. WOUND VAC TO THE RIGHT UPPER ABD WOUND-SURROUNDING AREA IS RED AND INFLAMMED. DRAINING SMALL AMT OF SEROSANGUINOUS FLUID-SETTING IS 125MMHG CONT SUCTION. TELE MONITOR IS SR-95. RIGHT IJ TLC INTACT AND NS PATENT AND INFUSING AT 100CC/HR. VANCO WAS HUNG ORDERRED. LAST VANCO TROUGH WAS 10 THIS MORNING. UP TO THE BSC TO VOID YELLOW U RINE. SAFETY PRECAUTIONS REINFORCED. CALL LIGHT IN REACH. WILL CONT TO MONITOR.
--- NOTE | 2023-12-08 23:42 | NUR ---
PATIENT CALLED AND RESPONDED TO ROOM-STATES THAT SHE WOKE UP WITH SEVERE RIGHT UPPER ABD PAIN EVEN AFTER PERCOCET. MEDICATED WITH DILAUDID 1MG IVP ORDERED FOR SEVERE GOMEZ. ZIYAD PAUL SCHEDULED. TELE MONITOR IN PLACE. CALL LIGHT IN REACH. WILL CONT TO MONITOR.
[2023-12-09 00:21] VITALS: BP 122/63
--- NOTE | 2023-12-09 03:32 | NUR ---
PATIENT RESTING IN BED-NO COMPLAINTS AT THIS TIME. ADRIEN HUNG SCHEDULED VIA RIGHT IJ TLC. TELE MONITOR IN PLACE. WOUND VAC REMAINS IN PLACE AT 125MMHG CONT SUCTION. CALL LIGHT IN REACH. WILL CONT TO MONITOR.
--- NOTE | 2023-12-09 04:21 | NUR ---
LAB WORK DRAWN FROM RIGHT NECK IJ TLC-BROWN PORT WITHOUT ANY DIFFICULTY. GOOD BLOOD RETURN AND FLUSHED WITH SALINE PER PROTOCOL. PATIENT C/O RUQ ABD PAIN AGAIN-OFFERED PERCOCET BUT PATIENT STATES THAT SHE WOKE UP "ON THE DRAIN SITE" AND HAS 8/10 PAIN. MEDICATED WITH DILAUDID 1MG IVP FOR PAIN. TELE MONTIOR IN PLACE. CALL LIGHT IN REACH, WILL CONT TO MONITOR.
[2023-12-09 04:40] VITALS: BP 130/76
[2023-12-09 05:02] LABS: BASO% 0.9 % (0-3); EOS% 5.2 % (0-8); HEMATOCRIT 24.5 % (37.0-47.0); HEMOGLOBIN 7.3 g/dl (12.0-16.0); IMMATURE GRANULOCYTES 0.9 % (0.0-5.0); LYMPH% 26.5 % (15-41); MEAN CELL VOLUME 90.7 fL CALC (80.0-100.0); MEAN CORPUSCULAR HGB CONC 29.8 g/dL CAL (32.0-36.0); NEUT# 4.3 thou/uL (2.00-7.15); NEUT% 57.5 % (42-76); RED BLOOD COUNT 2.7 mill/uL (4.20-5.60); RED CELL DISTRI WIDTH 13.3 % (11.5-15.5)
[2023-12-09 05:18] LABS: ANION GAP 3 (6-22 (CALC)); BUN 2 mg/dL (7-17); BUN/CREATININE RATIO 5 (12-20 (CALC)); CARBON DIOXIDE 33 mmol/l (22-30); CHLORIDE 105 mmol/l (95-108); CREATININE 0.4 mg/dL (0.5-1.0); GFR FOR AFR.AMER. > 60 ML/MIN (>=60 (CALC)); GFR OTHER RACES > 60 ML/MIN (>=60 (CALC)); POTASSIUM 3.8 mmol/l (3.5-5.1); SODIUM 137 mmol/l (137-146)
[2023-12-09 06:59] VITALS: BP 127/70
--- NOTE | 2023-12-09 07:01 | NUR ---
PT RESTING IN LOW FOWLERS POSITION A/O RESPIRATIONS ON ROOM AIR TELE NOTED RIJ TRIPLE LUMEN NOTED. PT HAS WOUND VAC IN PLACE SUCCTION IN PLACE DARK FLUID IN SUCCTION CANISTER. PT DENIES ADDITIONAL NEEDS AT THE TIME ALL SAFETY PRECAUTIONS IN PLACE WITH CALL LIGHT IN REACH.
--- NOTE | 2023-12-09 12:22 | NUR ---
PT DENIES ADDITIONAL NEEDS AT THE TIME WOUND VAC SUCCTION NOTED. PT STATED MD CHAUHAN HAS NOT SEEN PT YET. MD VALENCIA STATED TIEN TO SEE PT FIRST BEFORE WOUND VAC REPLACEMENT. NO ORDERS AT THE TIME.
--- NOTE | 2023-12-09 14:08 | NUR ---
S: KENDALL GRAFF is a 28 F who presents with abdominal wall cellulitis. She has a history of asthma and IV drug abuse. All medications in patient's chart were reviewed. O: VS: BP 127/70 mmHg, P 100 bpm, RR 19 bpm, T 98F W 106 kg, HT 67 in, Scr= 0.4 mg/dL, CrCl= 175 ml/min Vancomycin trough 12/09= 12 A: Wound culture show no growth after 48 hours. Body fluid culture show no growth after 48 hours. Vancomycin trough within therapeutic goal range. No change in dose warranted. P: Patient is on Zosyn 3.375 g IV Q6H. Vancomycin ordered for pharmacy to dose. Continue Vancomycin 1,250 mg IV Q8H. Vancomycin trough is drawn before the dose on 12/11/23 at 1100. Vancomycin goal trough is between 10-15 mcg/ml. Pharmacy will follow and or advise on antibiotics use as needed.
[2023-12-09 15:14] VITALS: BP 127/76
--- NOTE | 2023-12-09 17:19 | NUR ---
PT DENIES ADDITIONAL NEEDS AT THE TIME ALL SAFETY PRECAUTIONS IN PLACE WITH CALL LIGHT INREACH. ABX TO BE ADMINISTERED.
--- NOTE | 2023-12-09 20:00 | NUR ---
PATIENT RESTING IN BED AT THIS TIME-AWAKE ALERT AND ORIENTEEDX3. PATIENT STATES THAT SHE IS HAVING INCREASED PAIN AT THE RIGHT UPPER ABD WOUND SITE AND SURROUNDING AREA. WOUND VAC REMAINS IN PLACE DRAINING DARK SEROSANGUINOUS FLUID-125MMHG CONT SUCTION. DRESSING INTACT SURROUNDING AREA IS RED AND INFLAMMED-HARD AND WARM TO TOUCH. PER REPORT DR. LIN TO SEE PATIENT TOMORROW. PATIENT MEDICATED WITH DILAUDID 1MG IVP FOR RUQ PAIN. UP TO BSC TO VOID YELLOW URINE. STATES THAT SHE DID HAVE NORMAL BM TODAY. TELE MONITOR IN PLACE READING SR-96. PATIENT HR DOES GO TACHY WHEN OOB TO THE BSC THEN BACK DOWN WHEN SHE GETS BACK TO BED. RIGHT IJ TLC INTACT WITH IVF NS PATENT AND INFUSING AT 100CC/HR. SITE REMAINS HEALTHY. ADRIEN PAUL PER SCHEDULE. SAFETY PRECAUTIONS REINFORCED. CALL LIGHT IN REACH. WILL CONT TO MONITOR.
[2023-12-09 20:34] VITALS: BP 124/68
--- NOTE | 2023-12-09 22:15 | NUR ---
RESTING IN BED MEDICATED FOR ITCHING WITH BENEDRYLK 25MG IVP. UP TO THE BSC TO VOID YELLOW URINE. CALL LIGHT IN REACH.WILL CONT TO MONITOR.
[2023-12-10] VITALS (11 sets, daily range): BP systolic 117–138; BP diastolic 67–80
--- NOTE | 2023-12-10 | NUR ---
PATIENT RESTING IN BED-CONT TO C/O RIGHT UPPER ABD PAIN-8/10. DILAUDID 1MGIVP GIVEN ORDERED. WOUNDVAC IN PLACE. TELE MONITOR IN PLACE. IVF NS PATENT AND INFUSING VIA RIGHT IJ. CALL LIGHT IN REACH. WILL CONT TO MONITOR.
--- NOTE | 2023-12-10 00:49 | NUR ---
RESTING IN BED-MEDICATED FOR ITCHING WITH BENEDRYL 25MG IVP. UP TO THE BSC TO VOID YELLOW URINE. CALL LIGHT IN REACH. WILL CONT TO MONITOR.
--- NOTE | 2023-12-10 04:35 | NUR ---
PATIENT RESTING IN BED-ADRIEN HUNG AND INFUSING ORDERED VIA RIGHT IJ TLC. MEDICATED FOR PAIN 8/10 ON PAIN SCALE WITH DILAUDID 1MG IVP. TELE MONTIOR IN PLACE-LAST READING SR-89. UP TO THE BSC TO VOID YELLOW URINE. CALL LIGHT IN REACH. WILL CONT TO MONITOR.
--- NOTE | 2023-12-10 05:11 | NUR ---
PATIENT RESTING IN BED WITH EYES CLOSED. LAB WORK DRAWN FROM RIGHT IJ TLC WITHOUT ANY DIFFICULTY WITH GOOD BLOOD RETURN FROM BROWN PORT. FLUSHED PER PROTOCOL WITH SALINE. CALL LIGHT IN REACH. WILL CONT TO MONITOR.
[2023-12-10 06:28] LABS: BASO% 0.9 % (0-3); EOS% 6.1 % (0-8); HEMATOCRIT 23.7 % (37.0-47.0); HEMOGLOBIN 7.2 g/dl (12.0-16.0); IMMATURE GRANULOCYTES 1.1 % (0.0-5.0); LYMPH% 24.4 % (15-41); MEAN CELL VOLUME 90.8 fL CALC (80.0-100.0); MEAN CORPUSCULAR HGB 27.6 pG CALC (26.0-32.0); MEAN CORPUSCULAR HGB CONC 30.4 g/dL CAL (32.0-36.0); MONO% 9.5 % (2-13); NEUT# 4.35 thou/uL (2.00-7.15); RED BLOOD COUNT 2.61 mill/uL (4.20-5.60); RED CELL DISTRI WIDTH 13.7 % (11.5-15.5)
[2023-12-10 06:39] LABS: ANION GAP 3 (6-22 (CALC)); BUN 2 mg/dL (7-17); BUN/CREATININE RATIO 6 (12-20 (CALC)); CARBON DIOXIDE 32 mmol/l (22-30); CHLORIDE 105 mmol/l (95-108); CREATININE 0.4 mg/dL (0.5-1.0); GFR FOR AFR.AMER. > 60 ML/MIN (>=60 (CALC)); GFR OTHER RACES > 60 ML/MIN (>=60 (CALC)); POTASSIUM 3.5 mmol/l (3.5-5.1); SODIUM 137 mmol/l (137-146)
--- NOTE | 2023-12-10 07:00 | NUR ---
SHIFT CHANGE REPORT, PT SLEEPING BUT AWAKENED TO VERBAL STIMULI, C/O SHARP PTIN @ 04/28 TO SURGICAL RUQ AREA, IVF INFUSING, TELE MONITOR IN PLACE, CALL [place] IN REACH AND BED LOCKED IN LOWEST POSITION. PAIN CONCERN ADDRESSED.
--- NOTE | 2023-12-10 13:15 | NUR ---
WOUND VAC CHANGED ORDERED MY MD, PT IN EXCRUCIATING PAIN AND SCREAMING, PRE MEDICATED AND POST MEDICATED FOR PAIN.
--- NOTE | 2023-12-10 14:14 | NUR ---
BOOKED AN INFECTIOUS DISEASE CONSULT WITH DR LAYTON VIA THE [facility] AT 1414 HRS.
--- NOTE | 2023-12-10 14:16 | NUR ---
BOOKED A CARDIOLOGY CONSULT WITH DR LIVINGSTON VIA THE [facility] AT 1416 HRS.
--- NOTE | 2023-12-10 16:00 | NUR ---
SLEEPING, BREATHING EVEN AND NON-LABORED.
--- NOTE | 2023-12-10 17:00 | NUR ---
CARDIOLOGY CONSULTED VIRTUALLY, DISCUSSED PLAN OF CARE WITH PT.
--- NOTE | 2023-12-10 20:00 | NUR ---
RECEIVED REPORT FROM NURSE EMMANUEL ARIAS RESTING IN BED, ALERT ORIENTED WOUND VAC ON RUQ CHANGED TODAY SETTING AT 125, EMMANUEL HAS TRIPLE LUMEN LIJ NS @ 100CC/HR INFUSING WELL, BLOOD RETURN ON [place] ONLY, ALL 3 PORT FLUSHES WELL, PATIENT ON TELEMETRY SR4, C/O PAIN AND ITCHING ON RUQ AND BACK, PRN DILAUDID GIVEN AND BENADRYL, CALL LIGHT IN REACH.
[2023-12-11] VITALS (7 sets, daily range): BP systolic 129–143; BP diastolic 71–85
--- NOTE | 2023-12-11 00:24 | NUR ---
C/O ABDOMINAL PAIN PS 8/10 PRN DILAUDID GIVEN.
--- NOTE | 2023-12-11 04:11 | NUR ---
PATIENT WEIGHED, VANCOMYCIN CURRENTLY INFUSING, C/O PAIN ON RUQ PS 8/10 PRN DILAUDID GIVEN.
[2023-12-11 06:22] LABS: BASO% 0.5 % (0-3); HEMATOCRIT 25.7 % (37.0-47.0); HEMOGLOBIN 7.7 g/dl (12.0-16.0); LYMPH% 22.7 % (15-41); MEAN CELL VOLUME 91.5 fL CALC (80.0-100.0); MEAN CORPUSCULAR HGB 27.4 pG CALC (26.0-32.0); MONO% 10.8 % (2-13); NEUT# 4.49 thou/uL (2.00-7.15); RED BLOOD COUNT 2.81 mill/uL (4.20-5.60); RED CELL DISTRI WIDTH 13.9 % (11.5-15.5)
[2023-12-11 06:52] LABS: ANION GAP 5 (6-22 (CALC)); CARBON DIOXIDE 33 mmol/l (22-30); CHLORIDE 105 mmol/l (95-108); CREATININE 0.4 mg/dL (0.5-1.0); GFR FOR AFR.AMER. > 60 ML/MIN (>=60 (CALC)); GFR OTHER RACES > 60 ML/MIN (>=60 (CALC)); MAGNESIUM 1.6 mg/dL (1.6-2.3); POTASSIUM 3.5 mmol/l (3.5-5.1); SODIUM 139 mmol/l (137-146)
[2023-12-11 06:54] LABS: BUN < 2 mg/dL (7-17); BUN/CREATININE RATIO 5 (12-20 (CALC))
--- NOTE | 2023-12-11 07:48 | NUR ---
SHIFT CHANGE REPORT, PT AWAKE ALERT AND ORIENTED RESTING IN BED, C/O PAIN @ 7/10 AT THIS TIME, IVF INFUSING, TELE MONITOR IN PLACE, WOUND IN PLACE TO RUQ, CALL [place] IN REACH AND BED LOCKED IN LOWEST POSITION.
[2023-12-11] MEDS ORDERED: MAGNESIUM SULFATE HEPTAHYDRATE 50 ML IV SCH (10:00)
[2023-12-11] MEDS ORDERED: POTASSIUM CHLORIDE 20 MEQ/TAB PO SCH (10:00)
--- NOTE | 2023-12-11 12:00 | NUR ---
SITTING UP IN RECLINER AT THIS TIME, PAIN LEVELS ALWAYS @ 7-9, MEDICATED PER PROTOCOL.
--- NOTE | 2023-12-11 12:10 | NUR ---
WOUND VAC EVALUATED, NO DRAINAGE IN TUBINGS, WILL HAVE ANOTHER NURSE RE-EVALUATE.
--- NOTE | 2023-12-11 12:40 | NUR ---
S: KENDALL GRAFF is a 28 F who presents with abdominal wall cellulitis. She has a history of asthma and IV drug abuse. All medications in patient's chart were reviewed. O: VS: BP 130/74, P 92 bpm, RR 20 bpm, T 97.0 F W 101.2 kg, HT 67 in, Scr= 0.4 mg/dL, CrCl= 170.6 ml/min Her current trough level is 15 ug/mL previous on 12/11/23 is 12 ug/ml A: Wound culture show no growth after 48 hours of incubation. Body fluid culture show no growth after 48 hours of incubation. Trough level is within at upper limit of acceptable range P: Patient is on Zosyn 3.375g IV Q6H and Vancomycin 1250mg IV Q8H Decrease to Vancomycin 1g IV Q8H as trough is been consistantly increasing . Vancomycin trough is drawn before the 4th dose on 12/12/23 at 1230. Vancomycin goal trough is between 10-15 mcg/ml. Pharmacy will follow and or advise on antibiotics use as needed.
--- NOTE | 2023-12-11 12:49 | NUR ---
patient was asked numerous of times about sitting up recliner, and tried to encourage to sit in recliner. patient keep stating its hurts too bad, even after getting pain meds. but patient still refuses.
[2023-12-11] MEDS ORDERED: VANCOMYCIN HCL 1 GM in SODIUM CHLORIDE 0.9% 250 ML IV SCH (13:00)
--- NOTE | 2023-12-11 13:17 | NUR ---
VAC RE-EVALUATED, NO PROBLEM IDENTIFIED
[2023-12-11] MEDS ORDERED: DIATRIZOATE MEGLUMINE & SODIUM 30 ML/BTL BTL PO SCH (14:20)
--- NOTE | 2023-12-11 14:40 | NUR ---
patient sitting up in recliner with staff assistance.
--- NOTE | 2023-12-11 19:09 | NUR ---
TRANSPORTED OFF UNIT VIA W/C AT THIS TIME TO CT PROCEDURE.
--- NOTE | 2023-12-11 20:00 | NUR ---
RECEIVED REP[ORT FROM NURSE JUANA, PATIENT BACK FROM CT, PATIENT COONECTED BACK TO HER IV AND WOUND VAC, PATIENT HAS A RT TRIPLE LUMEN ON RIJ PATENT FLUSHES WELL, ON TELMETRY PATINET BREATHING EVEN ULABORED, NOT IN DISTRESS, CALL LIGHT IN REACH.
[2023-12-12] VITALS (9 sets, daily range): BP systolic 114–144; BP diastolic 67–83
--- NOTE | 2023-12-12 01:45 | NUR ---
PATINET C/O PASIN PS 06/29 PRN DILAUDID GIVEN.
--- NOTE | 2023-12-12 05:00 | NUR ---
PATIENT WEIGHED AND ASSITED TO EMMANUEL SOARES C/O PAIN RUQ PRN DILAUDID GIVEN
[2023-12-12 06:32] LABS: BASO% 0.7 % (0-3); EOS% 5.2 % (0-8); HEMATOCRIT 26.2 % (37.0-47.0); HEMOGLOBIN 7.9 g/dl (12.0-16.0); MEAN CELL VOLUME 91.6 fL CALC (80.0-100.0); MEAN CORPUSCULAR HGB 27.6 pG CALC (26.0-32.0); MEAN CORPUSCULAR HGB CONC 30.2 g/dL CAL (32.0-36.0); NEUT# 6.26 thou/uL (2.00-7.15); NEUT% 63.1 % (42-76); RED BLOOD COUNT 2.86 mill/uL (4.20-5.60); RED CELL DISTRI WIDTH 14.6 % (11.5-15.5)
[2023-12-12 06:51] LABS: ALBUMIN 2.4 g/dL (3.2-5.0); ANION GAP 7 (6-22 (CALC)); BILIRUBIN, TOTAL 0.3 mg/dL (0.02-1.3); BUN 2 mg/dL (7-17); BUN/CREATININE RATIO 5 (12-20 (CALC)); CARBON DIOXIDE 31 mmol/l (22-30); CHLORIDE 104 mmol/l (95-108); CREATININE 0.5 mg/dL (0.5-1.0); GFR FOR AFR.AMER. > 60 ML/MIN (>=60 (CALC)); GFR OTHER RACES > 60 ML/MIN (>=60 (CALC)); MAGNESIUM 1.9 mg/dL (1.6-2.3); POTASSIUM 3.8 mmol/l (3.5-5.1); SODIUM 138 mmol/l (137-146); TOTAL PROTEIN 5.1 g/dL (6.3-8.2)
[2023-12-12 07:00] LABS: ALKALINE PHOSPHATASE 208 u/l (38-126); SGOT/AST 83 u/l (14-36)
--- NOTE | 2023-12-12 08:00 | NUR ---
RECEIVED BEDSIDE SHIFT REPORT, ALERT ORIENTED X4. REQUESTED DILAUDID FOR PAIN IN ABDOMEN. RIJ PATENT FLUSHES WELL.
[2023-12-12] MEDS ORDERED: HYDROmorphone HCL 2 MG/AMP IV PRN (08:45)
--- NOTE | 2023-12-12 09:00 | NUR ---
OFF FLOOR TO RADIOLOGY.
[2023-12-12] MEDS ORDERED: ENOXAPARIN SODIUM 100 MG/ML SYR SC SCH (10:00)
--- NOTE | 2023-12-12 11:00 | NUR ---
WAS NOTIFIED THAT WAS POSITIVE FOR DVT IN RIGHT NECK. LOVENOX SQ GIVEN, ORDERED. ATTEMPTED TO PUT IN PERPHERAL IV BUT DID NOT SEE ANYTHING VIABLE TO ATTEMPT. NOTIFIED TAFFY PULLER.
--- NOTE | 2023-12-12 13:00 | NUR ---
IV SITE WAS OBTAINED VIA BEDSIDE ULTRASOUND BY NEETA QUINONES. FLUSHES WELL. IV BENADRY IV BENADRYL AND IV DILAUDID GIVEN PER PATIENT REQUEST. SITE FLUSHES WELL. TLC IN RIGHT IJ REMOVED PRESSURE DRESSING APPLIED TO INSERTION SITE. TOLERATED PROCEDURE WELL.
--- NOTE | 2023-12-12 14:58 | NUR ---
S: KENDALL GRAFF is a 28 F who presents with abdominal wall cellulitis. She has a history of asthma and IV drug abuse. All medications in patient's chart were reviewed. O: VS: BP= 114/73 mmHg, P= 96 pulse/minute, RR= 19 breaths/minute, T= 98.2 F W= 101.2 kg, HT= 67 inches, Scr= 0.5 mg/dl, CrCl= 170.6 ml/min Pt's trough level 13 ug/mL A: Blood culture shows no growth after 5 days incubation. Wound culture shows no growth after 48 hours incubation. Body fluid culture shows no growth after 48 hours incubation. P: Patient is on Zosyn 3.375 g IV Q6H and vancomycin 1 g IV Q8H. Vancomycin ordered for pharmacy to dose. Continue vancomycin 1 g IV Q8H. Vancomycin trough is drawn before the 4th dose on 12/13/23 @ 1230. Vancomycin goal trough is between 10-15 mcg/ml. Pt is within therapeutic levels. Pharmacy will follow and or advise on antibiotics use as needed.
--- NOTE | 2023-12-12 15:30 | NUR ---
WOUND VAC TO RIGHT UPPER ABD DRESSING CHANGE COMPLETED. PICTURES OBTAINED WITH MEASUREMENTS. GOOD SUCTION WITH NEW DRESSING. NO DRAINAGE IN COLLECTION CONTAINER.
--- NOTE | 2023-12-12 18:00 | NUR ---
IV SITE IN RIGHT AC INFILTRATED. AREA RED, SWOLLEN. IV STOPPED. IV SITE REMOVED AND ICE PACKS APPLIED TO AREA OF SWELLING. DR. [facility] [employer] [facility] ENGINEER NOTIFIED OF IV SITE INFILTRATION AND MY INABILITY TO OBTAIN NEW SITE. HEART RATE SUSTAINED IN THE 120 FOR SHORT PERIOD OF TIME, PATIENT WAS UP MOVING ABOUT IN ROOM, GETTING BACK TO BED AND ADJUSTING SELF IN BED. ONCE ACTIVITY SETTLED DOWN HEART RATE RETURNED TO NORMAL.
--- NOTE | 2023-12-12 20:51 | NUR ---
CALLED DR PAREDES NOTIFIED ABOUT PATIENT REFUSING TO REINSERT IV TONIGHT, CRYING, PAIN ON THE RT ARM WHERE PREVIOUS IV INFILTRATED, WITH ORDERS MADE, PATIENT, PATIENT NO IV AT THIS TIME, PRESSURE DRESSING ON THE NECK FROM THE REMOVAL OF THE CENTRAL LINE, CDI, PATIENT WOUND VAC ON ABDOMEN SETTINGS AT 125 SUCTION, SWELLING NOTED ON RT ARM FROM PREVIOUS IV SITE. CALL LIGHT IN REACHED.
[2023-12-12] MEDS ORDERED: FUROSEMIDE 40 MG/4 ML SDV IV SCH (21:00)
[2023-12-12] MEDS ORDERED: DOXYCYCLINE HYCLATE 100 MG/CAP PO SCH (21:03)
[2023-12-12] MEDS ORDERED: DiphenhydrAMINE HCL 25 MG CPLT PO PRN (21:05)
[2023-12-12] MEDS ORDERED: FUROSEMIDE 40 MG/TAB PO SCH (22:15)
[2023-12-13] MEDS ORDERED: CEPHALEXIN MONOHYDRATE 500 MG/CAP PO SCH
--- NOTE | 2023-12-13 | NUR ---
PATIENT C/O PAIN PS 8/10 PRN PERCOCET GIVEN, CALL LIGHT IN REACHED
--- NOTE | 2023-12-13 04:00 | NUR ---
PATIENT RESTING IN BED, NOT IN DISTRESS, BREATHING EVEN UNLABORED CALL LIGHT IN REACHED.EMPTIED BEDSIDE COMODE,DOCUMENT VOID.REMAINS ON TELEMETRY CALL LIGHT IN REACHED.
[2023-12-13 04:07] VITALS: BP 108/56
[2023-12-13 05:10] LABS: BASO% 0.5 % (0-3); EOS% 4.7 % (0-8); HEMATOCRIT 27.1 % (37.0-47.0); HEMOGLOBIN 8.3 g/dl (12.0-16.0); LYMPH% 29.9 % (15-41); MEAN CELL VOLUME 90.6 fL CALC (80.0-100.0); MEAN CORPUSCULAR HGB 27.8 pG CALC (26.0-32.0); MEAN CORPUSCULAR HGB CONC 30.6 g/dL CAL (32.0-36.0); MONO% 11.3 % (2-13); NEUT# 4.8 thou/uL (2.00-7.15); NEUT% 52.6 % (42-76); RED BLOOD COUNT 2.99 mill/uL (4.20-5.60); RED CELL DISTRI WIDTH 14.8 % (11.5-15.5)
[2023-12-13 05:42] LABS: ALBUMIN 2.5 g/dL (3.2-5.0); ALKALINE PHOSPHATASE 172 u/l (38-126); ANION GAP 9 (6-22 (CALC)); BILIRUBIN, TOTAL 0.2 mg/dL (0.02-1.3); BUN 3 mg/dL (7-17); BUN/CREATININE RATIO 7 (12-20 (CALC)); CARBON DIOXIDE 30 mmol/l (22-30); CHLORIDE 104 mmol/l (95-108); CREATININE 0.5 mg/dL (0.5-1.0); GFR FOR AFR.AMER. > 60 ML/MIN (>=60 (CALC)); GFR OTHER RACES > 60 ML/MIN (>=60 (CALC)); MAGNESIUM 1.7 mg/dL (1.6-2.3); POTASSIUM 3.7 mmol/l (3.5-5.1); SGOT/AST 29 u/l (14-36); SODIUM 139 mmol/l (137-146); TOTAL PROTEIN 5.3 g/dL (6.3-8.2)
[2023-12-13] MEDS ORDERED: FUROSEMIDE 40 MG/TAB PO SCH (06:00)
[2023-12-13 06:54] VITALS: BP 130/81
[2023-12-13 10:54] VITALS: BP 111/65
[2023-12-13] MEDS ORDERED: POTASSIUM CHLORIDE 20 MEQ/TAB PO SCH (12:00)
[2023-12-13 16:24] VITALS: BP 128/76
[2023-12-13 20:23] VITALS: BP 129/71
[2023-12-14 01:15] VITALS: BP 140/83
[2023-12-14 04:11] VITALS: BP 102/62
[2023-12-14 07:27] VITALS: BP 104/67
--- NOTE | 2023-12-14 08:00 | NUR ---
BEDSIDE SHIFT REPORT RECEIVED. NO C/O NOTED AT PRESENT TIME. CALL LIGHT IN REACH
[2023-12-14 09:21] LABS: BASO% 0.5 % (0-3); EOS% 4.2 % (0-8); HEMATOCRIT 30.8 % (37.0-47.0); HEMOGLOBIN 9.4 g/dl (12.0-16.0); IMMATURE GRANULOCYTES 0.9 % (0.0-5.0); MEAN CELL VOLUME 89.5 fL CALC (80.0-100.0); MEAN CORPUSCULAR HGB 27.3 pG CALC (26.0-32.0); MEAN CORPUSCULAR HGB CONC 30.5 g/dL CAL (32.0-36.0); MONO% 11.5 % (2-13); NEUT# 4.37 thou/uL (2.00-7.15); NEUT% 55.9 % (42-76); RED BLOOD COUNT 3.44 mill/uL (4.20-5.60); RED CELL DISTRI WIDTH 14.8 % (11.5-15.5)
[2023-12-14 10:28] VITALS: BP 109/71
--- NOTE | 2023-12-14 12:00 | NUR ---
REFUSED AM LABS. MD AWARE. STATES SHE IS MORE TOLERANT OF PAIN FROM WOUND VAC. DRESSING REMAINS INTACT. NO DRAINAGE IN COLLECTION CONTAINER. TOLERATING PO ABT WELL.
[2023-12-14 15:50] VITALS: BP 112/61
[2023-12-14 20:14] VITALS: BP 108/70
[2023-12-14 20:17] LABS: ALKALINE PHOSPHATASE 112 u/l (38-126); BUN 5 mg/dL (7-17); BUN/CREATININE RATIO 10 (12-20 (CALC)); CARBON DIOXIDE 28 mmol/l (22-30); CHLORIDE 104 mmol/l (95-108); CREATININE 0.6 mg/dL (0.5-1.0); GFR FOR AFR.AMER. > 60 ML/MIN (>=60 (CALC)); GFR OTHER RACES > 60 ML/MIN (>=60 (CALC)); SGOT/AST 48 u/l (14-36); SODIUM 140 mmol/l (137-146)
[2023-12-14 20:18] LABS: ALBUMIN 3.2 g/dL (3.2-5.0); ANION GAP 13 (6-22 (CALC)); BILIRUBIN, TOTAL 0.4 mg/dL (0.02-1.3); POTASSIUM 5.3 mmol/l (3.5-5.1); TOTAL PROTEIN 6.6 g/dL (6.3-8.2)
[2023-12-15 00:06] VITALS: BP 120/72
[2023-12-15 04:25] VITALS: BP 133/64
[2023-12-15 06:42] LABS: BASO% 0.7 % (0-3); EOS% 4.6 % (0-8); IMMATURE GRANULOCYTES 3.5 % (0.0-5.0); LYMPH% 30.6 % (15-41); MEAN CELL VOLUME 89.3 fL CALC (80.0-100.0); MEAN CORPUSCULAR HGB 26.8 pG CALC (26.0-32.0); MONO% 9.6 % (2-13); NEUT# 3.78 thou/uL (2.00-7.15); RED BLOOD COUNT 3.36 mill/uL (4.20-5.60); RED CELL DISTRI WIDTH 14.9 % (11.5-15.5)
[2023-12-15 07:00] VITALS: BP 123/77
[2023-12-15 07:01] LABS: ANION GAP 10 (6-22 (CALC)); BUN 5 mg/dL (7-17); BUN/CREATININE RATIO 10 (12-20 (CALC)); CARBON DIOXIDE 30 mmol/l (22-30); CHLORIDE 105 mmol/l (95-108); CREATININE 0.5 mg/dL (0.5-1.0); GFR FOR AFR.AMER. > 60 ML/MIN (>=60 (CALC)); GFR OTHER RACES > 60 ML/MIN (>=60 (CALC)); SODIUM 140 mmol/l (137-146)
--- NOTE | 2023-12-15 07:30 | NUR ---
SHIFT CHANGE REPORT, PT SLEEPING IN SUPINE POSITION, BREATHING PHILLIP AND NON-LABORED, TELE MONITOR IN PLACE, WOUND VAC IN PLACE, CALL [place] IN REACH AND BED LOCKED IN LOWEST POSITION
--- NOTE | 2023-12-15 08:12 | NUR ---
TRANSPORTED OFF UNIT VIA W/C TO [facility].
[2023-12-15 11:22] VITALS: BP 103/56; BP 146/75
--- NOTE | 2023-12-15 12:00 | NUR ---
AWAKE AND ALERT SITTING U FOR LUNCH, PAIN MUCH BETTER CONTROLLED WITH [employer] [employer]. PT STATES SHE FEELS [facility] BETTER AND WANTS TO GO HOME, STATES SHE FEELS IF SHE IS TAKING UP TIME HERE WHEN NURSES ARE BUSY AND SHE COULD BE HOME DOING A LOT MORE THANSHE IS DIONG HERE. MD AND LANG PATH THERAPIST NOTIFIED AND WROTE ORDERS TO D/C HOME WITH INSTRUCTIONS ON HOW TO CARE FOR WOUND TO [facility].
[2023-12-15 15:12] VITALS: BP 114/81
[2023-12-15] MEDS ORDERED: PERCOCET 5/325M1 TAB PO (16:01)
[2023-12-15] MEDS ORDERED: CEPHALEXIN500 MG PO (16:11)
[2023-12-15] MEDS ORDERED: DOXYCYCLINE HY100 MG PO (16:11)
[2023-12-15] MEDS ORDERED: XARELTO15 MG PO (16:28)
[2023-12-15] MEDS ORDERED: XARELTO20 MG PO (16:28)
--- NOTE | 2023-12-15 18:45 | NUR ---
PT INSTRUCTED ON HOW TO CHANGE DRESSINGS AND GIVEN SUPPLIES TO CHANGE WHILE SHE AWAITS DELIVERY OF WOUND VAC.
--- NOTE | 2023-12-16 13:49 | NUR ---
SCHEDULED THE PICK-UP OF A ULTA WOUND VAC (#[id number]) ASSIGNED TO THIS PATIENT VIA THE Student [employer] PORTAL.
== END 2023-12-15 19:01 | disposition home or self-care (01) | DRG 853 ==
LOC: ED 12:06 → ED-I 16:55 → ED 17:38 → MS2 17:39
PROVIDERS: Family Medicine; Nurse Practitioner Family; Student in an Organized Health Care Education/Training Program; ADMIT Student in an Organized Health Care Education/Training Program; ATTEND Student in an Organized Health Care Education/Training Program
PROC: 05HN33Z Insertion of Infusion Device into Left Internal Jugular Vein, Percutaneous Approach (ICD-10-PCS; 2023-12-04)
PROC: 02HV33Z Insertion of Infusion Device into Superior Vena Cava, Percutaneous Approach (ICD-10-PCS; 2023-12-04)
PROC: 0KBK0ZZ Excision of Right Abdomen Muscle, Open Approach (ICD-10-PCS; principal; 2023-12-05)
PROC: 0W993ZZ Drainage of Right Pleural Cavity, Percutaneous Approach (ICD-10-PCS; 2023-12-05)
DX: A41.9 Sepsis, unspecified organism (principal); L03.311 Cellulitis of abdominal wall; E43 Unspecified severe protein-calorie malnutrition; E87.1 Hypo-osmolality and hyponatremia; J90 Pleural effusion, not elsewhere classified; Z59.00 Homelessness unspecified; I82.C12 Acute embolism and thrombosis of left internal jugular vein; T82.868A Thrombosis due to vascular prosthetic devices, implants and grafts, initial encounter; L98.491 Non-pressure chronic ulcer of skin of other sites limited to breakdown of skin; R65.20 Severe sepsis without septic shock; J45.909 Unspecified asthma, uncomplicated; F15.10 Other stimulant abuse, uncomplicated; D50.9 Iron deficiency anemia, unspecified; F11.10 Opioid abuse, uncomplicated; E87.5 Hyperkalemia; F17.200 Nicotine dependence, unspecified, uncomplicated; F41.9 Anxiety disorder, unspecified; F32.A Depression, unspecified; E66.9 Obesity, unspecified; Y83.8 Other surgical procedures as the cause of abnormal reaction of the patient, or of later complication, without mention of misadventure at the time of the procedure; Z68.34 Body mass index [BMI] 34.0-34.9, adult; Z20.822 Contact with and (suspected) exposure to COVID-19
CPT/HCPCS: J0131; J1650; J1756; J3370; J3475; Q9967